=== PATIENT | female | born 1990 | race American Indian/Alaskan Native ===

== ENCOUNTER 2016-11-11 20:58 | Observation (INO) | payer SELFPAY ==
[2016-11-11 21:55] LABS: Bacteria,Urine 3+ /HPF (Negative); Bilirubin,Urine NEG (Negative); Blood,Urine LG (Negative); Ketones,Urine NEG (Negative); Leukocyte Esterase,Urine NEG (Negative); Nitrite,Urine NEG (Negative); Urobilinogen,Urine < 2.0 mg/dL (<2.0)
[2016-11-11 21:56] LABS: RBC,Urine > 182.0 /HPF (0.0-6.0)
[2016-11-11 22:09] LABS: Basophils % (Auto) 0.3 % (0.0-1.8); Eosinophils % (Auto) 0.7 % (0.0-4.3); Hematocrit 21.7 % (30.3-42.9); Hemoglobin 6.2 gm/dl (10.1-14.3); Mean Corpuscular HGB Conc 29 % (30-34); Platelet Count 328 K/mm3 (140-440); Red Blood Count 3.64 M/mm3 (3.65-5.03); Red Cell Distribution Width 19.6 % (13.2-15.2); White Blood Count 9.7 K/mm3 (4.5-11.0)
[2016-11-11 22:12] LABS: Partial Thromboplastin Time 28.1 Sec. (24.2-36.6)
[2016-11-11 22:14] LABS: Alanine Aminotransferase 14 units/L (7-56); Albumin 3.9 g/dL (3.9-5); Albumin/Globulin Ratio 1.1 %; Alkaline Phosphatase 64 units/L (35-129); Anion Gap 18 mmol/L; BUN/Creatinine Ratio 16.66; Bilirubin,Total < 0.20 mg/dL (0.1-1.2); Blood Urea Nitrogen 15 mg/dL (7-17); Calcium 8.5 mg/dL (8.4-10.2); Carbon Dioxide 22 mmol/L (22-30); Chloride 101.7 mmol/L (98-107); Glucose 128 mg/dL (65-100); Lipase 24 units/L (13-60); Potassium 4.1 mmol/L (3.6-5.0); Sodium 138 mmol/L (137-145); Total Protein 7.3 g/dL (6.3-8.2)
[2016-11-11 22:17] LABS: Mean Corpuscular Hemoglobin 17 pg (28-32); Mean Corpuscular Volume 60 fl (79-97)
[2016-11-11] MEDS ORDERED: PROVERA PO SCH (23:45)
[2016-11-11] MEDS ORDERED: NACL 0.9% 500 ML 500 ML IV ONE (23:49)
--- NOTE | 2016-11-12 00:01 | Emergency Department Report ---
ED Female HPI - General Chief complaint: Vaginal Bleeding Stated complaint: MENSTRUAL ON GOING Time Seen by Provider: 11/11/16 23:44 Source: patient Mode of arrival: Ambulatory Limitations: No Limitations - History of Present Illness Initial comments: 26-year-old female here with heavy menstrual cycle since September 13. Patient states that she has had irregular menses for several years however this is the heaviest she's been bleeding. 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 She's been feeling lightheaded and dizzy. Denies fevers chills nausea vomiting. She has no abdominal pain. She does not have a disease management nurse currently. MD Complaint: vaginal bleeding -: Gradual Radiation: non-radiating Severity: moderate Improves with: none Worsens with: none Are you Now?: No Associated Symptoms: vaginal bleeding, headaches. denies: vaginal discharge, abdominal pain, nausea/vomiting, fever/chills - Related Data Sexually active: Yes Home Medications Medication Instructions Recorded Confirmed Last Taken No Known Home Medications [No 11/11/16 11/11/16 Unknown Reported Home Medications] Allergies Allergy/AdvReac Type Severity Reaction Status Date / Time No Known Allergies Allergy Verified 09/14/14 23:11 ED Review of Systems ROS: Stated complaint: MENSTRUAL ON GOING Other details as noted in HPI Comment: All other systems reviewed and negative Constitutional: weakness. denies: chills, fever Cardiovascular: denies: chest pain, palpitations, syncope, paroxysmal nocturnal dyspnea ED Past Medical Hx - Past Medical History Previous Medical History?: Yes Hx Hypertension: No Hx Heart Attack/AMI: No Hx Congestive Heart Failure: No Hx Diabetes: Yes (gestational only) Hx Deep Vein Thrombosis: No Hx Liver Disease: No Hx Renal Disease: No Hx Sickle Cell Disease: No Hx Seizures: No Hx Asthma: No Hx COPD: No Hx HIV: No Additional medical history: anemia. pre-eclampsia. morbidly obese - Surgical History Past Surgical History?: Yes Hx Pacemaker: No Hx Internal Defibrillator: No Additional Surgical History: c/s x 1. tubal ligation. T&A. wisdom teeth - Family History Family history: no significant - Social History Smoking Status: Never Smoker Substance Use Type: None - Medications Home Medications: Home Medications Medication Instructions Recorded Confirmed Last Taken Type No Known Home Medications [No 11/11/16 11/11/16 Unknown History Reported Home Medications] ED Physical Exam - General Limitations: No Limitations General appearance: alert, other (morbidly obese) - Head Head exam: Present: atraumatic, normocephalic - Eye Eye exam: Present: other (pale conjunctiva) - ENT ENT exam: Present: normal orophraynx - Respiratory Respiratory exam: Present: normal lung sounds bilaterally, respiratory distress - Cardiovascular Cardiovascular Exam: Present: regular rate, normal rhythm - GI/Abdominal GI/Abdominal exam: Present: soft. Absent: distended, tenderness - Speculum exam: Present: other (deferred) - Extremities Exam Extremities exam: Present: full ROM, tenderness - Neurological Exam Neurological exam: Present: alert, oriented X3 - Psychiatric Psychiatric exam: Present: normal affect, normal mood ED Course Vital Signs 11/11/16 21:10 Temperature 98.0 F Pulse Rate 101 H Respiratory 16 Rate Blood Pressure 149/92 [Right] O2 Sat by Pulse 99 Oximetry ED Medical Decision Making - Lab Data Result diagrams: 11/11/16 21:40 11/11/16 21:40 - Medical Decision Making Patient is a 26-year-old female here with a irregular heavy vaginal bleeding. She is feeling lightheaded and has a hemoglobin of 6.2. Denies pain in the abdomen or pelvis. She will need transfusion and admission. Transvaginal ultrasound ordered. 26-year-old with menometorrhagia. Patient consented for blood discussed case with on-call disease management nurse and will admit to their service. Portions of this chart were dictated with dictation software. There may be dictation errors contained within this note. Critical Care Time: Yes (30) Critical care attestation.: If time is entered above; I have spent that time in minutes in the direct care of this critically ill patient, excluding procedure time. Critical Care Time: 30 ED Disposition Clinical Impression: Menometrorrhagia, Iron deficiency anemia due to chronic blood loss Disposition: OP ADMIT IP TO THIS HOSP Is pt being admited?: Yes Condition: Stable Referrals: PRIMARY CARE, [Primary Care Provider] - 3-5 Days
--- NOTE | 2016-11-12 00:50 | Ultrasound Report ---
FINAL REPORT PROCEDURE: US TRANSVAGINAL TECHNIQUE: Real-time transvaginal sonography in multiple planes of the pelvis was performed with image documentation. This examination was performed without Doppler. Vascular abnormalities, including ovarian torsion, will not be detectable without Doppler evaluation. CPT 86982 HISTORY: vaginal bleeding COMPARISON: No prior studies are available for comparison. FINDINGS: UTERUS Size: 11.8 x 6.1 x 6 5 cm. Endometrial thickness: 14 mm. The endometrial pattern is complex with some mixed echogenic region is [place] within the mid endometrium. This could represent clot formation, other etiologies such is a polyp in this region is not excluded. Orientation: anteverted. Cervix: Normal. Fibroids/masses: None. RIGHT Ovary: 3.4 x 2.4 x 2 cm. Appearance: Normal. LEFT Ovary: 3 x 2.3 x 1.7 cm. Appearance: Normal. Pelvic fluid: None. Other: None. IMPRESSION: The uterus is slightly enlarged. There is complex echogenicity in the endometrium. The endometrial pattern is slightly thickened at 14 millimeters. The findings may indicate clot formation, other etiologies such as a polyp in the endometrium is not excluded. Both ovaries have a normal size and appearance..
[2016-11-12] MEDS ORDERED: TYLENOL PO PRN (01:40)
[2016-11-12] MEDS ORDERED: PERCOCET 5/325 PO PRN (01:40)
[2016-11-12] MEDS ORDERED: BENADRYL PO ONE (01:43)
[2016-11-12 11:39] LABS: Hematocrit 25.3 % (30.3-42.9); Hemoglobin 7.5 gm/dl (10.1-14.3)
[2016-11-12 11:55] VITALS: BP 135/57
--- NOTE | 2016-11-12 11:59 | Short Stay Summary ---
Short Stay Documentation Date of service: 11/12/16 Narrative H&P: 26-year-old 003 who presents to the emergency department with a complaint of dizziness and weakness. The patient reports a history of irregular heavy bleeding with the usage of a maxi pad every 1-2 hours. Upon admission she was found to have iron deficiency anemia with a hemoglobin of 6. The patient was admitted for an blood transfusion. - History Principal diagnosis: dysfunctional uterine bleeding; iron deficiency anemia Past Medical History: other (morbid obesity) Past Surgical History: , Other (tubal ligation) Social history: - Allergies and Medications Current Medications: Allergies No Known Allergies Allergy (Verified 09/14/14 23:11) Home Medications Medication Instructions Recorded Confirmed Last Taken Type Ferrous Sulfate [Feosol 325 MG tab] 325 mg PO BID #60 tablet 11/12/16 Unknown Rx Active Medications Acetaminophen (Tylenol) 650 mg PO Q6H PRN PRN Reason: Pain, Mild (1-3) Last Admin: 11/12/16 02:12 Dose: 650 mg Oxycodone/Acetaminophen (Percocet 5/325) 2 tab PO Q6H PRN PRN Reason: Pain, Moderate (4-6) - Physical exam General appearance: no acute distress Integumentary: no rash HEENT: Atraumatic Lungs: Clear to auscultation Breasts: deferred Heart: Regular rate Gastrointestinal: normal Female Genitourinary: deferred - Hospital course Hospital course: The september traction was admitted through the emergency department secondary to severe iron deficiency anemia. She was transfused 2 units of packed red blood cells. The patient received Depo-Provera during her hospitalization to improve her vaginal bleeding. The patient was instructed to follow-up as outpatient in the [facility]. - Disposition Condition at discharge: Good Disposition: [id number] TO HOME OR SELFCARE Short Stay Discharge Plan Activity: no restrictions Diet: regular Additional Instructions: Follow-up with Dr. Joyner [facility] in 2-[address] weeks [address] [place] [id number] Prescriptions: Ferrous Sulfate [Feosol 325 MG tab] 325 mg PO BID #60 tablet
[2016-11-12] MEDS ORDERED: DEPO-PROVERA (CONTRACEPTION) IM ONE (13:00)
== END 2016-11-12 13:30 | disposition home or self-care (01) ==
LOC: ED 20:58 → OB 11-12 00:27
PROVIDERS: ADMIT Obstetrics & Gynecology; ATTEND Obstetrics & Gynecology
DX: N92.1 Excessive and frequent menstruation with irregular cycle (principal); D50.9 Iron deficiency anemia, unspecified; E66.01 Morbid (severe) obesity due to excess calories; Z98.51 Tubal ligation status
CPT/HCPCS: 36415; 36430; 76830; 80053; 81001; 83690; 84703; 85014; 85018; 85025; 85610; 85730; 86850; 86900; 86901; 86920; 96360; 96361; 96372; 99291; G0378; J1050; J7040; P9016

== ENCOUNTER 2017-06-29 18:38 | Emergency (ER) | payer SELFPAY ==
[2017-06-29] MEDS ORDERED: TYLENOL ONE (18:42)
[2017-06-29] MEDS ORDERED: TYLENOL PO ONE (18:45)
[2017-06-29] MEDS ORDERED: TORADOL IV ONE (19:50)
[2017-06-29] MEDS ORDERED: ZOFRAN IV ONE (19:50)
[2017-06-29] MEDS ORDERED: NACL 0.9% 1000 ML 1,000 ML IV ONE (19:50)
--- NOTE | 2017-06-29 19:50 | Emergency Department Report ---
Blank Doc - Documentation Documentation: Patient is a 26-year-old female who is presenting with flulike symptoms for 24 hours. Patient states she has a sore throat she hasn't eaten or drank anything in 24 hours she also is complaining of mild cough bodyaches dizziness and nausea. Patient on brief physical exam was tachycardic moved to a treatment area to receive IV fluids Toradol and be reassessed.
--- NOTE | 2017-06-29 20:17 | Emergency Department Report ---
ED General Adult HPI - General Chief complaint: Fever Stated complaint: FLU LIKE SX Time Seen by Provider: 06/29/17 19:45 Source: patient Mode of arrival: Ambulatory Limitations: No Limitations - History of Present Illness Initial comments: Patient is a 26-year-old female who is presenting with flulike symptoms for 24 hours. Patient states she has a sore throat she hasn't eaten or drank anything in 24 hours she also is complaining of mild cough bodyaches dizziness and nausea. Patient on brief physical exam was tachycardic moved to a treatment area to receive IV fluids Toradol and be reassessed. Onset/Timin -: days(s) Location: head, back Radiation: back Severity scale (0 -10): 2 Quality: aching Consistency: constant Improves with: none Worsens with: other (activity ) Associated Symptoms: cough, fever/chills, headaches, loss of appetite, malaise, nausea/vomiting. denies: confusion, chest pain, rash, seizure, shortness of breath, syncope, weakness Treatments Prior to Arrival: none - Related Data Previous Rx's Medication Instructions Recorded Last Taken Type Ferrous Sulfate [Feosol 325 MG tab] 325 mg PO BID #60 tablet 11/12/16 Unknown Rx Guaifenesin/Pseudoephedrne HCl 1 tab PO BID PRN #24 tab 06/29/17 Unknown Rx [Mucinex D ER 1,200-120 mg Tab] Ibuprofen 800 mg PO TID PRN #30 tablet 06/29/17 Unknown Rx Ondansetron [Zofran Odt] 4 mg PO TID PRN #12 tab.rapdis 06/29/17 Unknown Rx Allergies Allergy/AdvReac Type Severity Reaction Status Date / Time No Known Allergies Allergy Verified 09/14/14 23:11 ED Review of Systems ROS: Stated complaint: FLU LIKE SX Other details as noted in HPI Constitutional: denies: chills, fever Eyes: denies: eye pain, eye discharge, vision change ENT: ear pain, throat pain, congestion Respiratory: cough. denies: shortness of breath, wheezing Cardiovascular: denies: chest pain, palpitations Endocrine: no symptoms reported Gastrointestinal: abdominal pain. denies: nausea, vomiting, diarrhea, constipation, hematemesis, melena, hematochezia Genitourinary: denies: urgency, dysuria, discharge Musculoskeletal: denies: back pain, joint swelling, arthralgia Skin: denies: rash, lesions Neurological: headache. denies: weakness, numbness, paresthesias, confusion, abnormal gait, vertigo Psychiatric: denies: anxiety, depression Hematological/Lymphatic: denies: easy bleeding, easy bruising ED Past Medical Hx - Past Medical History Hx Hypertension: No Hx Heart Attack/AMI: No Hx Congestive Heart Failure: No Hx Diabetes: Yes (gestational only) Hx Deep Vein Thrombosis: No Hx Liver Disease: No Hx Renal Disease: No Hx Sickle Cell Disease: No Hx Seizures: No Hx Asthma: No Hx COPD: No Hx HIV: No Additional medical history: anemia. pre-eclampsia. morbidly obese - Surgical History Hx Pacemaker: No Hx Internal Defibrillator: No Additional Surgical History: c/s x 1. tubal ligation. T&A. wisdom teeth - Social History Smoking Status: Never Smoker Substance Use Type: None - Medications Home Medications: Home Medications Medication Instructions Recorded Confirmed Last Taken Type Ferrous Sulfate [Feosol 325 MG tab] 325 mg PO BID #60 tablet 11/12/16 Unknown Rx Guaifenesin/Pseudoephedrne HCl 1 tab PO BID PRN #24 tab 06/29/17 Unknown Rx [Mucinex D ER 1,200-120 mg Tab] Ibuprofen 800 mg PO TID PRN #30 tablet 06/29/17 Unknown Rx Ondansetron [Zofran Odt] 4 mg PO TID PRN #12 tab.rapdis 06/29/17 Unknown Rx ED Physical Exam - General Limitations: No Limitations General appearance: alert, in no apparent distress - Head Head exam: Present: atraumatic, normocephalic - Eye Eye exam: Present: normal appearance, PERRL, EOMI Pupils: Present: normal accommodation - ENT ENT exam: Present: normal exam, mucous membranes moist, TM's normal bilaterally (mild canal erythema ) - Expanded ENT Exam Expanded TM/Canal exam: Canal Tenderness: Right TM, Left TM Mouth exam: Present: normal external inspection Throat exam: Positive: tonsillar erythema, tonsillomegaly. Negative: tonsillar exudate, R peritonsillar mass, L peritonsillar mass - Neck Neck exam: Present: normal inspection, full ROM. Absent: tenderness, meningismus, lymphadenopathy, thyromegaly - Respiratory Respiratory exam: Present: normal lung sounds bilaterally. Absent: respiratory distress, wheezes, rhonchi, chest wall tenderness - Cardiovascular Cardiovascular Exam: Present: normal rhythm, tachycardia, normal heart sounds. Absent: systolic murmur, diastolic murmur, rubs, gallop - GI/Abdominal GI/Abdominal exam: Present: soft, normal bowel sounds. Absent: distended, tenderness, guarding, rebound, rigid, organomegaly, mass, bruit, pulsatile mass , hernia - Rectal Rectal exam: Present: deferred - Extremities Exam Extremities exam: Present: normal inspection, full ROM, normal capillary refill. Absent: tenderness, pedal edema, joint swelling, calf tenderness - Back Exam Back exam: Present: normal inspection, full ROM. Absent: tenderness, CVA tenderness (R), CVA tenderness (L), muscle spasm, paraspinal tenderness, vertebral tenderness, rash noted - Neurological Exam Neurological exam: Present: alert, oriented X3, CN II-XII intact, normal gait, reflexes normal - Psychiatric Psychiatric exam: Present: normal affect, normal mood - Skin Skin exam: Present: warm, dry, intact, normal color. Absent: rash ED Course Vital Signs 06/29/17 06/29/17 06/29/17 18:43 18:48 19:48 Temperature 102.4 F H Pulse Rate 124 H Respiratory 24 24 18 Rate Blood Pressure 153/68 Blood Pressure [Left] O2 Sat by Pulse 96 Oximetry 06/29/17 06/29/17 06/29/17 20:56 21:00 21:17 Temperature 101.2 F H Pulse Rate 96 H 101 H Respiratory 18 20 18 Rate Blood Pressure 125/55 Blood Pressure 111/62 [Left] O2 Sat by Pulse 97 98 Oximetry 06/29/17 21:22 Temperature 100.9 F H Pulse Rate Respiratory Rate Blood Pressure Blood Pressure [Left] O2 Sat by Pulse Oximetry ED Medical Decision Making - Medical Decision Making Patient is a 26-year-old female who is presenting with flulike symptoms for 24 hours. Patient states she has a sore throat she hasn't eaten or drank anything in 24 hours she also is complaining of mild cough bodyaches dizziness and nausea. Patient on brief physical exam was tachycardic moved to a treatment area to receive IV fluids Toradol and be reassessed. pt appears improve nontoxic is tolerating po challenge with out n/v ent exam: tms: normal mild canal erythema, nose: boggy bilat turbinate erythema no polyps no obstruction pharynx: moderate erythema no exudate no lestion lungs are clear bilat no wheezing heart rate and fever are improve, plan: tx for flu like symptoms uri, mucinex D, ibuprofen, zofran, hydrate as directed follow up with pcp in 2-3 days, pt verbalized agreement and understanding of same. Critical care attestation.: If time is entered above; I have spent that time in minutes in the direct care of this critically ill patient, excluding procedure time. ED Disposition Clinical Impression: Flu-like symptoms, Upper respiratory infection Disposition: TO HOME OR SELFCARE Is pt being admited?: No Does the pt Need Aspirin: No Condition: Good Instructions: Influenza (ED), Upper Respiratory Infection (ED) Prescriptions: Guaifenesin/Pseudoephedrne HCl [Mucinex D ER 1,200-120 mg Tab] 1 tab PO BID PRN #24 tab PRN Reason: cough congestion Ibuprofen 800 mg PO TID PRN #30 tablet PRN Reason: pain fever Ondansetron [Zofran Odt] 4 mg PO TID PRN #12 tab.rapdis PRN Reason: Nausea And Vomiting Referrals: PRIMARY CARE,MD [Primary Care Provider] - 3-5 Days Forms: Work/School Release Form(ED) Time of Disposition: 22:32
[2017-06-29 22:33] VITALS: BP 128/64
== END 2017-06-29 22:45 | disposition home or self-care (01) ==
LOC: ED 18:38
DX: J06.9 Acute upper respiratory infection, unspecified (principal); Z98.51 Tubal ligation status
CPT/HCPCS: 96361; 96374; 96375; 99283; J1885; J2405; J7030

== ENCOUNTER 2018-01-31 19:23 | Emergency (ER) | payer SELFPAY ==
--- NOTE | 2018-01-31 19:55 | Emergency Department Report ---
ED Lower Extremity HPI - General Chief Complaint: Extremity Injury, Lower Stated Complaint: LEFT LEG PAIN Time Seen by Provider: 01/31/18 19:55 Source: patient Mode of arrival: Ambulatory Limitations: No Limitations - History of Present Illness Initial Comments: This is a 27-year-old female nontoxic, well nourished in appearance, no acute signs of distress presents to the ED with c/o of left knee pain 1 week. Patient stated that when she was walking she felt a pop. Patient denies any trauma. Patient denies any numbness, tingling, fever, chills, nausea, vomiting , chest pain, shortness of breath, headache, stiff neck. Patient denies any joint swelling or joint redness. Patient denies decreased range of motion. Patient stated has decreased gait due to pain. Patient denies any allergies. Past medical history includes diabetes, gestational and anemia. MD Complaint: knee injury -: week(s) (1) Injury: Knee: Left Severity: mild Severity scale (0 -10): 8 Improves With: immobilization Worsens With: weight bearing, movement, palpation Associated Symptoms: snap/pop sensation, able to partially bear weight, ambulatory. denies: swelling, numbness, tingling, unable to bear weight - Related Data Previous Rx's Medication Instructions Recorded Last Taken Type Ferrous Sulfate [Feosol 325 MG tab] 325 mg PO BID #60 tablet 11/12/16 Unknown Rx Guaifenesin/Pseudoephedrne HCl 1 tab PO BID PRN #24 tab 06/29/17 Unknown Rx [Mucinex D ER 1,200-120 mg Tab] Ibuprofen 800 mg PO TID PRN #30 tablet 06/29/17 Unknown Rx Ondansetron [Zofran Odt] 4 mg PO TID PRN #12 tab.rapdis 06/29/17 Unknown Rx Acetaminophen/Codeine [Tylenol 1 tab PO Q6H PRN #12 tab 01/31/18 Unknown Rx /Codeine # 3 tab] Ibuprofen [Motrin] 600 mg PO Q8H PRN #30 tab 01/31/18 Unknown Rx Allergies Allergy/AdvReac Type Severity Reaction Status Date / Time No Known Allergies Allergy Verified 09/14/14 23:11 ED Review of Systems ROS: Stated complaint: LEFT LEG PAIN Other details as noted in HPI Constitutional: denies: chills, fever Eyes: denies: eye pain, eye discharge, vision change ENT: denies: ear pain, throat pain Respiratory: denies: cough, shortness of breath, wheezing Cardiovascular: denies: chest pain, palpitations Endocrine: no symptoms reported Gastrointestinal: denies: abdominal pain, nausea, diarrhea Genitourinary: denies: urgency, dysuria, discharge Musculoskeletal: denies: back pain, joint swelling, arthralgia Skin: denies: rash, lesions Neurological: denies: headache, weakness, paresthesias Psychiatric: denies: anxiety, depression Hematological/Lymphatic: denies: easy bleeding, easy bruising ED Past Medical Hx - Past Medical History Previous Medical History?: Yes Hx Hypertension: No Hx Heart Attack/AMI: No Hx Congestive Heart Failure: No Hx Diabetes: Yes (gestational only) Hx Deep Vein Thrombosis: No Hx Liver Disease: No Hx Renal Disease: No Hx Sickle Cell Disease: No Hx Seizures: No Hx Asthma: No Hx COPD: No Hx HIV: No Additional medical history: anemia. pre-eclampsia. morbidly obese - Surgical History Past Surgical History?: Yes Hx Pacemaker: No Hx Internal Defibrillator: No Additional Surgical History: c/s x 1. tubal ligation. T&A. wisdom teeth - Social History Smoking Status: Never Smoker Substance Use Type: None - Medications Home Medications: Home Medications Medication Instructions Recorded Confirmed Last Taken Type Ferrous Sulfate [Feosol 325 MG tab] 325 mg PO BID #60 tablet 11/12/16 Unknown Rx Guaifenesin/Pseudoephedrne HCl 1 tab PO BID PRN #24 tab 06/29/17 Unknown Rx [Mucinex D ER 1,200-120 mg Tab] Ibuprofen 800 mg PO TID PRN #30 tablet 06/29/17 Unknown Rx Ondansetron [Zofran Odt] 4 mg PO TID PRN #12 tab.rapdis 06/29/17 Unknown Rx Acetaminophen/Codeine [Tylenol 1 tab PO Q6H PRN #12 tab 01/31/18 Unknown Rx /Codeine # 3 tab] Ibuprofen [Motrin] 600 mg PO Q8H PRN #30 tab 01/31/18 Unknown Rx ED Physical Exam - General Limitations: No Limitations General appearance: alert, in no apparent distress - Head Head exam: Present: atraumatic, normocephalic - Eye Eye exam: Present: normal appearance - ENT ENT exam: Present: mucous membranes moist - Neck Neck exam: Present: normal inspection - Respiratory Respiratory exam: Present: normal lung sounds bilaterally. Absent: respiratory distress - Cardiovascular Cardiovascular Exam: Present: regular rate, normal rhythm. Absent: systolic murmur, diastolic murmur, rubs, gallop - GI/Abdominal GI/Abdominal exam: Present: soft, normal bowel sounds - Extremities Exam Extremities exam: Present: normal inspection, full ROM, tenderness, normal capillary refill. Absent: joint swelling - Expanded Lower Extremity Exam Left Hip exam: Present: normal inspection, full ROM. Absent: tenderness, swelling Upper Leg exam: Present: normal inspection, full ROM. Absent: tenderness, swelling Knee exam: Present: normal inspection, full ROM, tenderness, full knee extension. Absent: swelling, abrasion, laceration, ecchymosis, deformity, crepidus, dislocation, erythema, effusion, pain w/ pronation/supination, posterior draw sign, pain/laxity with valgus, pain/laxity with varus Lower Leg exam: Present: normal inspection, full ROM. Absent: tenderness, swelling Ankle exam: Present: normal inspection, full ROM. Absent: tenderness, swelling Foot/Toe exam: Present: normal inspection, full ROM. Absent: tenderness, swelling Neuro vascular tendon exam: Present: no vascular compromise. Absent: pulse deficit, abnormal cap refill, motor deficit, sensory deficit, tendon deficit, extremity cold to touch, pallor, abnormal 2-point discrimination, decreased fine /light touch, foot drop, peroneal nerve deficit, significant pain with passive ROM of distal joint Gait: Positive: observed and limited by pain - Back Exam Back exam: Present: normal inspection - Neurological Exam Neurological exam: Present: alert, oriented X3 - Psychiatric Psychiatric exam: Present: normal affect, normal mood - Skin Skin exam: Present: warm, dry, intact, normal color. Absent: rash ED Course Vital Signs 01/31/18 19:44 Temperature 98.5 F Pulse Rate 68 Respiratory 17 Rate Blood Pressure 164/92 O2 Sat by Pulse 99 Oximetry - Reevaluation(s) Reevaluation #1: 01/31/18 20:51 Patient is speaking in full sentences with no signs of distress noted. ED Lower Extremity MDM - Medical Decision Making This is a 27-year-old female that presents with left knee strain. Patient is stable and was examined by me. I referred patient to an orthopedic doctor for further evaluation for possible MRI. X-ray has been obtained and dictated by the radiologist. Patient is notified of the x-ray report with noted by the patient. Patient does have normal gait with no tenderness and no joint swelling. No ecchymosis. no joint redness or swelling. Not warm to touch. No signs of cellulites present. Patient received a knee immobilizer but was too small so patient received an frances wrap. Patient was instructed to RICE therapy. Patient received Motrin for pain. Patient is discharged with Motrin. At time of discharge, the patient does not seem toxic or ill in appearance. No acute signs of distress noted. Patient agrees to discharge treatment plan of care. No further questions noted by the patient. Critical care attestation.: If time is entered above; I have spent that time in minutes in the direct care of this critically ill patient, excluding procedure time. ED Disposition Clinical Impression: Strain of left knee Qualifiers: Encounter type: initial encounter Qualified Code(s): S86.912A - Strain of unspecified muscle(s) and tendon(s) at lower leg level, left leg, initial encounter Disposition: - TO HOME OR SELFCARE Is pt being admited?: No Does the pt Need Aspirin: No Condition: Stable Instructions: Acetaminophen/Codeine (By mouth), Knee Pain (ED), RICE Therapy ( ED), Knee Immobilizer (ED) Additional Instructions: Follow-up with a orthopedic doctor in 3-5 days or if symptoms worsen and continue return to emergency room as soon as possible. Do not operate any machinery while taking Tylenol with codeine as this may cause drowsiness. Prescriptions: Acetaminophen/Codeine [Tylenol /Codeine # 3 tab] 1 tab PO Q6H PRN #12 tab PRN Reason: Pain , Severe (7-10) Ibuprofen [Motrin] 600 mg PO Q8H PRN #30 tab PRN Reason: Pain Referrals: PRIMARY CAREMD [Primary Care Provider] - 3-5 Days RAFIQ PRICE MD [Staff Physician] - 3-5 Days [facility] [Outside] - 3-5 Days [facility] [Outside] - 3-5 Days Forms: Work/School Release Form(ED)
--- NOTE | 2018-01-31 20:35 | XRay Report ---
FINAL REPORT PROCEDURE: XR KNEE 1-2V LT TECHNIQUE: Left knee radiographs, AP and lateral views. HISTORY: left knee pain COMPARISON: No prior studies are available for comparison. FINDINGS: Fracture (s) and/or Dislocation(s): None . Joint space(s): Moderate joint space narrowing of the medial compartment. There is tricompartmental spurring. Soft tissues: Normal. Bone mineralization: Normal. Foreign bodies: None. IMPRESSION: Degenerative change. No fracture seen.
[2018-01-31 21:14] VITALS: BP 142/75
== END 2018-01-31 21:12 | disposition home or self-care (01) ==
LOC: ED 19:23
DX: S86.912A Strain of unspecified muscle(s) and tendon(s) at lower leg level, left leg, initial encounter (principal); E11.9 Type 2 diabetes mellitus without complications; Z98.51 Tubal ligation status; X58.XXXA Exposure to other specified factors, initial encounter; Y93.01 Activity, walking, marching and hiking; Y92.89 Other specified places as the place of occurrence of the external cause; Y99.8 Other external cause status
CPT/HCPCS: 99283

== ENCOUNTER 2018-02-20 12:01 | Emergency (ER) | payer OTHER ==
[2018-02-20 12:18] VITALS: BP 158/68
[2018-02-20 12:44] LABS: HCG Qualitative,Urine Negative (Negative)
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
--- NOTE | 2018-02-20 14:35 | XRay Report ---
LEFT KNEE, 3 views: History: Right knee. Moderate osteoarthritic changes are identified in the medial compartment and patellofemoral space. No evidence for fracture or or bone lesion. Small joint effusion. IMPRESSION: Osteoarthritis. Small joint effusion.
--- NOTE | 2018-02-20 14:35 | XRay Report ---
LUMBOSACRAL SPINE, 3 VIEWS: History: Back pain Findings: The vertebral bodies, disk spaces and posterior elements are intact. No compression deformity or malalignment. There is moderate diffuse facet arthropathy throughout the lumbar region. The disc spaces are unremarkable. The SI joints are symmetric and unremarkable. Impression: Diffuse facet arthropathy. No acute injury.
== END 2018-02-20 15:01 | disposition home or self-care (01) ==
LOC: ED 12:01
DX: S39.012A Strain of muscle, fascia and tendon of lower back, initial encounter (principal); M17.12 Unilateral primary osteoarthritis, left knee; M25.462 Effusion, left knee; E66.01 Morbid (severe) obesity due to excess calories; Z68.43 Body mass index [BMI] 50.0-59.9, adult; Z86.2 Personal history of diseases of the blood and blood-forming organs and certain disorders involving the immune mechanism; Z98.51 Tubal ligation status; Z79.899 Other long term (current) drug therapy; V89.2XXA Person injured in unspecified motor-vehicle accident, traffic, initial encounter; Y93.89 Activity, other specified; Y99.8 Other external cause status; Y92.410 Unspecified street and highway as the place of occurrence of the external cause
CPT/HCPCS: 72100; 81025; 99283

== ENCOUNTER 2019-04-10 09:30 | Emergency (ER) | payer SELFPAY ==
[2019-04-10 09:41] VITALS: BP 183/55
[2019-04-10 10:23] LABS: Bilirubin,Urine NEG (Negative); Blood,Urine NEG (Negative); Color,Urine Straw (Yellow); Mucus,Urine FEW /HPF; Protein,Urine <15 mg/dL mg/dL (Negative); RBC,Urine < 1.0 /HPF (0.0-6.0); Urobilinogen,Urine < 2.0 mg/dL (<2.0); WBC,Urine < 1.0 /HPF (0.0-6.0)
[2019-04-10 10:28] LABS: HCG Qualitative,Urine Negative (Negative)
--- NOTE | 2019-04-10 11:41 | Emergency Department Report ---
ED Female HPI - General Chief complaint: Abdominal Pain Stated complaint: RT ARM TINGLE/FEVER/LOWER ABD Time Seen by Provider: 04/10/19 10:24 Source: patient Mode of arrival: Ambulatory Limitations: No Limitations - History of Present Illness Initial comments: Patient is a 28-year-old female presents emergency room with complaints of chronic left-sided pelvic discomfort that began 3 days ago. She has associated dysuria, less frequent urination, clear vaginal discharge. she denies any vaginal itching, vaginal burning, lesions or blisters. She denies any nausea, vomiting, diarrhea, fever. She had a normal bowel movement yesterday. Patient states that she had a pelvic ultrasound performed in May 2018 by her ENGINEERING PRODUCTION WORKER which she states was normal. States that she is was to have a workup for endometriosis by her ENGINEERING PRODUCTION WORKER. denies any past medical history or allergies medications. She states her last mental cycle was January and states she has irregular cycles. - Related Data Previous Rx's Medication Instructions Recorded Last Taken Type Ferrous Sulfate [Feosol 325 MG tab] 325 mg PO BID #60 tablet 11/12/16 Unknown Rx Guaifenesin/Pseudoephedrne HCl 1 tab PO BID PRN #24 tab 06/29/17 Unknown Rx [Mucinex D ER 1,200-120 mg Tab] Ibuprofen 800 mg PO TID PRN #30 tablet 06/29/17 Unknown Rx Ondansetron [Zofran Odt] 4 mg PO TID PRN #12 tab.rapdis 06/29/17 Unknown Rx Acetaminophen/Codeine [Tylenol 1 tab PO Q6H PRN #12 tab 01/31/18 Unknown Rx /Codeine # 3 tab] Ibuprofen [Motrin] 600 mg PO Q8H PRN #30 tab 01/31/18 Unknown Rx Ibuprofen [Motrin 800 MG tab] 800 mg PO Q8HR PRN #12 tablet 02/20/18 Unknown Rx methOCARBAMOL [Robaxin TAB] 500 mg PO BID #10 tab 02/20/18 Unknown Rx metroNIDAZOLE [Flagyl] 500 mg PO BID 7 Days #14 tab 04/10/19 Unknown Rx Allergies Allergy/AdvReac Type Severity Reaction Status Date / Time No Known Allergies Allergy Verified 09/14/14 23:11 ED Review of Systems ROS: Stated complaint: RT ARM TINGLE/FEVER/LOWER ABD Other details as noted in HPI Comment: All other systems reviewed and negative ED Past Medical Hx - Past Medical History Previous Medical History?: Yes Hx Hypertension: No Hx Heart Attack/AMI: No Hx Congestive Heart Failure: No Hx Diabetes: Yes (gestational only) Hx Deep Vein Thrombosis: No Hx Liver Disease: No Hx Renal Disease: No Hx Sickle Cell Disease: No Hx Seizures: No Hx Asthma: No Hx COPD: No Hx HIV: No Additional medical history: Anemia - Surgical History Past Surgical History?: Yes Hx Pacemaker: No Hx Internal Defibrillator: No Additional Surgical History: c/s x 1. tubal ligation. T&A. wisdom teeth - Social History Smoking Status: Never Smoker Substance Use Type: Alcohol - Medications Home Medications: Home Medications Medication Instructions Recorded Confirmed Last Taken Type Ferrous Sulfate [Feosol 325 MG tab] 325 mg PO BID #60 tablet 11/12/16 Unknown Rx Guaifenesin/Pseudoephedrne HCl 1 tab PO BID PRN #24 tab 06/29/17 Unknown Rx [Mucinex D ER 1,200-120 mg Tab] Ibuprofen 800 mg PO TID PRN #30 tablet 06/29/17 Unknown Rx Ondansetron [Zofran Odt] 4 mg PO TID PRN #12 tab.rapdis 06/29/17 Unknown Rx Acetaminophen/Codeine [Tylenol 1 tab PO Q6H PRN #12 tab 01/31/18 Unknown Rx /Codeine # 3 tab] Ibuprofen [Motrin] 600 mg PO Q8H PRN #30 tab 01/31/18 Unknown Rx Ibuprofen [Motrin 800 MG tab] 800 mg PO Q8HR PRN #12 tablet 02/20/18 Unknown Rx methOCARBAMOL [Robaxin TAB] 500 mg PO BID #10 tab 02/20/18 Unknown Rx metroNIDAZOLE [Flagyl] 500 mg PO BID 7 Days #14 tab 04/10/19 Unknown Rx ED Physical Exam - General Limitations: No Limitations General appearance: alert, in no apparent distress - Head Head exam: Present: atraumatic, normocephalic - Eye Eye exam: Present: normal appearance - ENT ENT exam: Present: mucous membranes moist - Respiratory Respiratory exam: Present: normal lung sounds bilaterally. Absent: respiratory distress, wheezes, rales, rhonchi, stridor, chest wall tenderness, accessory muscle use, decreased breath sounds, prolonged expiratory - Cardiovascular Cardiovascular Exam: Present: regular rate, normal rhythm, normal heart sounds. Absent: systolic murmur, diastolic murmur, rubs, gallop - GI/Abdominal GI/Abdominal exam: Present: soft, normal bowel sounds. Absent: distended, tende rness, guarding, rebound, rigid - External exam: Present: normal external exam. Absent: erythema, swelling, lesions, lacerations, ecchymosis, bleeding Speculum exam: Present: vaginal discharge (clear, fishy odor), other (coal trammer: HEMANT pastrana). Absent: erythema, vaginal bleeding, foreign body Bi-manual exam: Present: normal bi-manual exam. Absent: cervical motion tendernes, adnexal tenderness, adnexal mass - Back Exam Back exam: Absent: CVA tenderness (R), CVA tenderness (L) - Neurological Exam Neurological exam: Present: alert, oriented X3 - Psychiatric Psychiatric exam: Present: normal affect, normal mood - Skin Skin exam: Present: warm, dry, intact ED Course Vital Signs 04/10/19 09:39 Temperature 98.3 F Pulse Rate 71 Respiratory 18 Rate Blood Pressure 183/55 O2 Sat by Pulse 96 Oximetry ED Medical Decision Making - Lab Data Lab Results 04/10/19 Range/Units 10:11 Urine Color Straw (Yellow) Urine Turbidity Clear (Clear) Urine pH 7.0 (5.0-7.0) Ur Specific Baxter 1.013 (1.003-1.030) Urine Protein <15 mg/dl (Negative) mg/dL Urine Glucose (UA) Neg (Negative) mg/dL Urine Ketones Neg (Negative) mg/dL Urine Blood Neg (Negative) Urine Nitrite Neg (Negative) Urine Bilirubin Neg (Negative) Urine Urobilinogen < 2.0 (<2.0) mg/dL Ur Leukocyte Esterase Neg (Negative) Urine WBC (Auto) < 1.0 (0.0-6.0) /HPF Urine RBC (Auto) < 1.0 (0.0-6.0) /HPF U Epithel Cells (Auto) 1.0 (0-13.0) /HPF Urine Mucus Few /HPF Urine HCG, Qual Negative (Negative) - Medical Decision Making Patient is a 28-year-old female presents emergency room with complaints of chronic left-sided pelvic discomfort that began 3 days ago. She has associated dysuria, less frequent urination, clear vaginal discharge. she denies any vaginal itching, vaginal burning, lesions or blisters. She denies any nausea, vomiting, diarrhea, fever. She had a normal bowel movement yesterday. Patient states that she had a pelvic ultrasound performed in May 2018 by her ENGINEERING PRODUCTION WORKER which she states was normal. States that she is was to have a workup for endometriosis by her ENGINEERING PRODUCTION WORKER. denies any past medical history or allergies medications. She states her last mental cycle was January and states she has irregular cycles. vitals with elevated BP, otherwise stable. UA is normal. urine preg is negative. wet prep is negative. G/C swab sent. no abd tenderness on exam. on pelvic exam: clear, fishy odor vaginal discharge, no CMT, no adnexal masses or tenderness, coal trammer: HEMANT pastrana. no clinical signs or symptoms of TOA or PID. pt given flagyl for vaginitis. advised pt to Please take medication as prescribed. do not drink alcohol while taking medication. Please go to medical records in one week with your drivers license for results of your tests to see if you need further treatment. Please follow-up with a primary care doctor and an ENGINEERING PRODUCTION WORKER. Please see the ENGINEERING PRODUCTION WORKER for further evaluation and ma nagement. Return to the emergency room for any new or worsening symptoms. - Differential Diagnosis vaginitis, UTI, BV, STD, yeast, ovarian cyst, fibroids, endometriosis Critical care attestation.: If time is entered above; I have spent that time in minutes in the direct care of this critically ill patient, excluding procedure time. ED Disposition Clinical Impression: Chronic pelvic pain in female, Dysuria Vaginitis Qualifiers: Chronicity: acute Qualified Code(s): N76.0 - Acute vaginitis Disposition: TO HOME OR SELFCARE Is pt being admited?: No Does the pt Need Aspirin: No Condition: Stable Instructions: Vaginitis (ED), Chronic Pelvic Pain in Women (ED) Additional Instructions: Please take medication as prescribed. do not drink alcohol while taking medication. Please go to medical records in one week with your drivers license for results of your tests to see if you need further treatment. Please follow- up with a primary care doctor and an ENGINEERING PRODUCTION WORKER. Please see the ENGINEERING PRODUCTION WORKER for further evaluation and management. Return to the emergency room for any new or worsening symptoms. Prescriptions: metroNIDAZOLE [Flagyl] 500 mg PO BID 7 Days #14 tab Referrals: your, ENGINEERING PRODUCTION WORKER [Other] - 2-[address] MD [Staff Physician] - 2-3 Days Forms: Work/School Release Form(ED) Time of Disposition: 12:07 Print Language: SCOTTISH
== END 2019-04-10 12:24 | disposition home or self-care (01) ==
LOC: ED 09:30
DX: N76.0 Acute vaginitis (principal); R30.0 Dysuria
CPT/HCPCS: 81001; 81025; 87210; 87591

== ENCOUNTER 2019-11-13 23:12 | Emergency (ER) | payer SELFPAY ==
--- NOTE | 2019-11-14 00:10 | XRay Report ---
CHEST 1 VIEW 12:00 AM INDICATION / CLINICAL INFORMATION: Chest Pain. COMPARISON: 05/04/16. FINDINGS: SUPPORT DEVICES: None. HEART / MEDIASTINUM: The heart size is borderline. Pulmonary vasculature is normal. The aorta is norm al in caliber. LUNGS / PLEURA: No significant pulmonary or pleural abnormality. No pneumothorax. ADDITIONAL FINDINGS: No significant additional findings. IMPRESSION: Borderline heart size without acute pulmonary disease. Signer Name: Geovanny Swanson MD Signed: 11/14/2019 12:05 AM Workstation Name: [id number]
[2019-11-14] MEDS ORDERED: ACETAMINOPHEN 500 MG TAB PO ONE (02:38)
[2019-11-14] MEDS ORDERED: ACETAMINOPHEN 325 MG/10.15 ML ORAL LIQD UNIT DOSE PO ONE (02:38)
[2019-11-14] MEDS ORDERED: predniSONE 20 MG TAB PO ONE (02:38)
--- NOTE | 2019-11-14 02:39 | Emergency Department Report ---
ED General Adult HPI - General Chief complaint: Chest Pain Stated complaint: CHESTPAIN/HEADACHE/EARACHE Source: patient Mode of arrival: Ambulatory Limitations: No Limitations - History of Present Illness Initial comments: Patient is a 29-year-old -[place] female with a history of chronic morbid obesity and gestational diabetes who presents to the ED with complaint of acute onset persistent nasal and sinus congestion, frontal sinus pressure and headache, severe bilateral ear pain, persistent dry cough with pleuritic chest pain, sore throat, diffuse body aches and pains for the last 1 week. Patient states that the symptoms have worsened in the last 2 days at that she has not been able to sleep because of severe bilateral ear pain and frontal sinus pressure and headache. Patient also states that her cough is worse at night when she lays down to sleep. Patient also states that she has been taking [id number] medications especially decongestants with no relief. Patient denies dizziness, chest pain, shortness of breath, abdominal pain, nausea, vomiting, diarrhea, fever, chills, dysuria, urinary frequency and urgency, syncope or palpitations. MD Complaint: frontal headache, bilateral ear pain; chest pain -: Sudden, week(s) (1) Location: head, face, chest Radiation: non-radiation Severity scale (0 -10): 5 Quality: aching, sharp Consistency: constant Improves with: none Worsens with: none Associated Symptoms: denies other symptoms, chest pain, headaches, loss of appetite, malaise. denies: confusion, cough, diaphoresis, fever/chills, nausea/vomiting, rash, seizure, shortness of breath, syncope, weakness, other Treatments Prior to Arrival: none - Related Data Previous Rx's Medication Instructions Recorded Last Taken Type Ferrous Sulfate [Feosol 325 MG tab] 325 mg PO BID #60 tablet 11/12/16 Unknown Rx Guaifenesin/Pseudoephedrne HCl 1 tab PO BID PRN #24 tab 06/29/17 Unknown Rx [Mucinex D ER 1,200-120 mg Tab] Ibuprofen 800 mg PO TID PRN #30 tablet 06/29/17 Unknown Rx Ondansetron [Zofran Odt] 4 mg PO TID PRN #12 tab.rapdis 06/29/17 Unknown Rx Acetaminophen/Codeine [Tylenol 1 tab PO Q6H PRN #12 tab 01/31/18 Unknown Rx /Codeine # 3 tab] Ibuprofen [Motrin] 600 mg PO Q8H PRN #30 tab 01/31/18 Unknown Rx Ibuprofen [Motrin 800 MG tab] 800 mg PO Q8HR PRN #12 tablet 02/20/18 Unknown Rx methOCARBAMOL [Robaxin TAB] 500 mg PO BID #10 tab 02/20/18 Unknown Rx metroNIDAZOLE [Flagyl] 500 mg PO BID 7 Days #14 tab 04/10/19 Unknown Rx Amoxicillin/Potassium Clav 1 each PO Q12H #20 tablet 11/14/19 Unknown Rx [Augmentin 875-125 Tablet] Benzonatate [Tessalon Perles] 100 mg PO Q8HR #30 capsule 11/14/19 Unknown Rx Butalb/Acetamin/Caff 50-325-40 1 - 2 tab PO Q6HR PRN #15 tab 11/14/19 Unknown Rx [Fioricet 50-325-40] Ibuprofen [Motrin] 800 mg PO Q8HR PRN #30 tablet 11/14/19 Unknown Rx methylPREDNISolone [Medrol 4MG 4 mg PO DAILY #21 tab.ds.pk 11/14/19 Unknown Rx DOSEPAK (21 tabs)] Allergies Allergy/AdvReac Type Severity Reaction Status Date / Time No Known Allergies Allergy Verified 09/14/14 23:11 ED Review of Systems ROS: Stated complaint: CHESTPAIN/HEADACHE/EARACHE Other details as noted in HPI Constitutional: denies: chills, fever Eyes: denies: eye pain, eye discharge, vision change ENT: congestion, other (Frontal sinus pressure and headache). denies: ear pain, throat pain Respiratory: cough. denies: shortness of breath, wheezing Cardiovascular: chest pain (Pleuritic chest wall pain with cough). denies: palpitations Endocrine: no symptoms reported Gastrointestinal: denies: abdominal pain, nausea, diarrhea Genitourinary: denies: urgency, dysuria, discharge Musculoskeletal: denies: back pain, joint swelling, arthralgia Skin: denies: rash, lesions Neurological: headache (Frontal sinus pressure and headache). denies: weakness, paresthesias Psychiatric: denies: anxiety, depression Hematological/Lymphatic: denies: easy bleeding, easy bruising ED Past Medical Hx - Past Medical History Previous Medical History?: Yes Hx Hypertension: No Hx Heart Attack/AMI: No Hx Congestive Heart Failure: No Hx Diabetes: Yes (gestational only) Hx Deep Vein Thrombosis: No Hx Liver Disease: No Hx Renal Disease: No Hx Sickle Cell Disease: No Hx Seizures: No Hx Asthma: No Hx COPD: No Hx HIV: No Additional medical history: Anemia - Surgical History Past Surgical History?: Yes Hx Pacemaker: No Hx Internal Defibrillator: No Additional Surgical History: c/s x 1. tubal ligation. T&A. wisdom teeth - Social History Smoking Status: Never Smoker Substance Use Type: None - Medications Home Medications: Home Medications Medication Instructions Recorded Confirmed Last Taken Type Ferrous Sulfate [Feosol 325 MG tab] 325 mg PO BID #60 tablet 11/12/16 Unknown Rx Guaifenesin/Pseudoephedrne HCl 1 tab PO BID PRN #24 tab 06/29/17 Unknown Rx [Mucinex D ER 1,200-120 mg Tab] Ibuprofen 800 mg PO TID PRN #30 tablet 06/29/17 Unknown Rx Ondansetron [Zofran Odt] 4 mg PO TID PRN #12 tab.rapdis 06/29/17 Unknown Rx Acetaminophen/Codeine [Tylenol 1 tab PO Q6H PRN #12 tab 01/31/18 Unknown Rx /Codeine # 3 tab] Ibuprofen [Motrin] 600 mg PO Q8H PRN #30 tab 01/31/18 Unknown Rx Ibuprofen [Motrin 800 MG tab] 800 mg PO Q8HR PRN #12 tablet 02/20/18 Unknown Rx methOCARBAMOL [Robaxin TAB] 500 mg PO BID #10 tab 02/20/18 Unknown Rx metroNIDAZOLE [Flagyl] 500 mg PO BID 7 Days #14 tab 04/10/19 Unknown Rx Amoxicillin/Potassium Clav 1 each PO Q12H #20 tablet 11/14/19 Unknown Rx [Augmentin 875-125 Tablet] Benzonatate [Tessalon Perles] 100 mg PO Q8HR #30 capsule 11/14/19 Unknown Rx Butalb/Acetamin/Caff 50-325-40 1 - 2 tab PO Q6HR PRN #15 tab 11/14/19 Unknown Rx [Fioricet 50-325-40] Ibuprofen [Motrin] 800 mg PO Q8HR PRN #30 tablet 11/14/19 Unknown Rx methylPREDNISolone [Medrol 4MG 4 mg PO DAILY #21 tab.ds.pk 11/14/19 Unknown Rx DOSEPAK (21 tabs)] ED Physical Exam - General Limitations: No Limitations General appearance: alert, in no apparent distress - Head Head exam: Present: atraumatic, normocephalic, normal inspection - Eye Eye exam: Present: normal appearance, PERRL, EOMI Pupils: Present: normal accommodation - ENT ENT exam: Present: normal orophraynx, mucous membranes moist, normal external ear exam, other (Palpable frontal sinus tenderness; grossly congested nasal passages; erythematous bulging tympanic membrane with effusion bilaterally) - Neck Neck exam: Present: normal inspection, full ROM. Absent: tenderness, lymphadenopathy - Respiratory Respiratory exam: Present: normal lung sounds bilaterally. Absent: respiratory distress, wheezes, rales, rhonchi, chest wall tenderness, accessory muscle use, decreased breath sounds, prolonged expiratory - Cardiovascular Cardiovascular Exam: Present: regular rate, normal rhythm, normal heart sounds. Absent: systolic murmur, diastolic murmur, rubs, gallop - GI/Abdominal GI/Abdominal exam: Present: soft, normal bowel sounds. Absent: tenderness, guarding, hyperactive bowel sounds, hypoactive bowel sounds - Extremities Exam Extremities exam: Present: normal inspection, full ROM, normal capillary refill - Back Exam Back exam: Present: normal inspection, full ROM. Absent: tenderness, CVA tenderness (R), CVA tenderness (L), muscle spasm, paraspinal tenderness, vertebral tenderness - Neurological Exam Neurological exam: Present: alert, oriented X3, CN II-XII intact, normal gait, reflexes normal - Psychiatric Psychiatric exam: Present: normal affect, normal mood - Skin Skin exam: Present: warm, dry, intact, normal color. Absent: rash ED Course Vital Signs 11/13/19 11/14/19 23:24 04:43 Temperature 98.3 F 97.8 F Pulse Rate 80 69 Respiratory 22 18 Rate Blood Pressure 169/65 131/67 O2 Sat by Pulse 98 97 Oximetry ED Medical Decision Making - Lab Data Result diagrams: 11/14/19 03:04 11/14/19 03:04 - Radiology Data Findings [facility] [address] [place] [address] XRay Report Signed Patient: VERENA ZELAYA MR#: [id number] : 1990 Acct:[id number] Age/Sex: 29 / F ADM Date: 11/13/19 Loc: ED Attending Dr: Ordering Physician: JOSE PALMA MD Date of Service: 11/13/19 Procedure(s): XR chest 1V ap Accession Number(s): [id number] cc: ED MD LOUIE Fluoro Time In Minutes: CHEST 1 VIEW 12:00 AM INDICATION / CLINICAL INFORMATION: Chest Pain. COMPARISON: 05/04/16. FINDINGS: SUPPORT DEVICES: None. HEART / MEDIASTINUM: The heart size is borderline. Pulmonary vasculature is normal. The aorta is normal in caliber. LUNGS / PLEURA: No significant pulmonary or pleural abnormality. No pneumothorax. ADDITIONAL FINDINGS: No significant additional findings. IMPRESSION: Borderline heart size without acute pulmonary disease. Signer Name: Geovanny Swanson MD Signed: 11/14/2019 12:05 AM Workstation Name: [id number] Transcribed By: RT Dictated By: Geovanny Swanson MD Electronically Authenticated By: Geovanny Swanson MD Signed Date/Time: 11/14/19 0005 DD/ 0004 TD/TT: - Medical Decision Making This is a 29-year-old -[place] female with a history of chronic morbid obesity and gestational diabetes who presents to the ED with complaint of acute onset persistent nasal and sinus congestion, frontal sinus pressure and headache, severe bilateral ear pain, persistent dry cough with pleuritic chest pain, sore throat, diffuse body aches and pains for the last 1 week. Patient states that the symptoms have worsened in the last 2 days at that she has not been able to sleep because of severe bilateral ear pain and frontal sinus pressure and headache. Patient also states that her cough is worse at night when she lays down to sleep. Patient also states that she has been taking [id number]-[id number] medications especially decongestants with no relief. In the ED, patient is alert and oriented x3 and is not in distress. The EKG shows normal sinus rhythm with a ventricular rate of 75 bpm and possible LVH changes. Chest x-ray shows borderline heart size without acute pulmonary disease. Lab test results were reviewed and are all nonactionable. Patient was treated for pain and also given oral prednisone. On reevaluation, patient felt better and was discharged home on medications including oral antibiotics for bilateral otitis media and acute frontal sinusitis. Patient was advised to return to the ED immediately if symptoms get worse, otherwise follow-up with her primary care physician in 5 to 7 days for reevaluation. - Differential Diagnosis sinusitis; pneumonia; otitis media; URI; Bronchitis; CAD Critical care attestation.: If time is entered above; I have spent that time in minutes in the direct care of this critically ill patient, excluding procedure time. ED Disposition Clinical Impression: Acute non-recurrent frontal sinusitis, Acute upper respiratory infection, Pleuritic chest pain, Acute otitis media with effusion of both ears Acute bronchitis Qualifiers: Bronchitis organism: unspecified organism Qualified Code(s): J20.9 - Acute bronchitis, unspecified Disposition: DC- TO HOME OR SELFCARE Is pt being admited?: No Does the pt Need Aspirin: No Condition: Stable Instructions: Chest Pain (ED), Acute Bronchitis (ED), Acute Bacterial Rhinosinusitis (ED), Otitis Media (ED) Additional Instructions: Take medication with food, drink plenty of fluids and follow up with your Primary care Physician in 5 to 7 days for reevaluation. Return to the ED immediately if symptoms get worse. Prescriptions: Amoxicillin/Potassium Clav [Augmentin 875-125 Tablet] 1 each PO Q12H #20 tablet Butalb/Acetamin/Caff 50-325-40 [Fioricet 50-325-40] 1 - 2 tab PO Q6HR PRN #15 tab PRN Reason: Headache methylPREDNISolone [Medrol 4MG DOSEPAK (21 tabs)] 4 mg PO DAILY #21 tab.ds.pk Ibuprofen [Motrin] 800 mg PO Q8HR PRN #30 tablet PRN Reason: Pain , Severe (7-10) Benzonatate [Tessalon Perles] 100 mg PO Q8HR #30 capsule Referrals: [facility] [Provider Group] - 3-5 Days Time of Disposition: 05:44 Print Language: BELARUSIAN
[2019-11-14] MEDS ORDERED: ASPIRIN 325 MG TAB PO ONE (02:56)
[2019-11-14 04:23] LABS: Basophils % (Auto) 0.2 % (0.0-1.8); Eosinophils # (Auto) 0.1 K/mm3 (0.0-0.4); Lymphocytes # (Auto) 2.3 K/mm3 (1.2-5.4); Lymphocytes % (Auto) 26.8 % (13.4-35.0); Mean Corpuscular HGB Conc 30 % (30-34); Monocytes # (Auto) 0.6 K/mm3 (0.0-0.8); Monocytes % (Auto) 7.2 % (0.0-7.3); Platelet Count 292 K/mm3 (140-440); Red Blood Count 5.29 M/mm3 (3.65-5.03); Red Cell Distribution Width 19.1 % (13.2-15.2)
[2019-11-14 04:40] LABS: Hematocrit 35.8 % (30.3-42.9); Hemoglobin 10.8 gm/dl (10.1-14.3); Mean Corpuscular Volume 68 fl (79-97)
[2019-11-14 04:44] VITALS: BP 131/67
[2019-11-14 04:59] LABS: Alanine Aminotransferase 18 units/L (7-56); Albumin 3.6 g/dL (3.9-5); BUN/Creatinine Ratio 16; Blood Urea Nitrogen 11 mg/dL (7-17); Calcium 8.8 mg/dL (8.4-10.2); Hemolysis Index 12
== END 2019-11-14 06:24 | disposition home or self-care (01) ==
LOC: ED 23:12
DX: J20.9 Acute bronchitis, unspecified (principal); J01.10 Acute frontal sinusitis, unspecified; H65.193 Other acute nonsuppurative otitis media, bilateral
CPT/HCPCS: 36415; 71045; 80053; 83880; 84484; 85025; 93005; 99284; J7512

== ENCOUNTER 2020-02-20 18:48 | Emergency (ER) | payer SELFPAY ==
[2020-02-20 19:41] LABS: Basophils % (Auto) 0.2 % (0.0-1.8); Eosinophils % (Auto) 0.4 % (0.0-4.3); Hematocrit 27.9 % (30.3-42.9); Hemoglobin 8.7 gm/dl (10.1-14.3); Lymphocytes # (Auto) 3.1 K/mm3 (1.2-5.4); Lymphocytes % (Auto) 28.2 % (13.4-35.0); Mean Corpuscular HGB Conc 31 % (30-34); Monocytes # (Auto) 0.8 K/mm3 (0.0-0.8); Monocytes % (Auto) 6.9 % (0.0-7.3); Platelet Count 338 K/mm3 (140-440); Red Blood Count 4.06 M/mm3 (3.65-5.03); Red Cell Distribution Width 19.1 % (13.2-15.2)
[2020-02-20 19:43] LABS: Mean Corpuscular Volume 69 fl (79-97)
[2020-02-20 20:23] LABS: Bilirubin,Urine NEG (Negative); Blood,Urine LG (Negative); Color,Urine Red (Yellow); Urobilinogen,Urine < 2.0 mg/dL (<2.0)
[2020-02-20 20:24] LABS: RBC,Urine > 182.0 /HPF (0.0-6.0)
--- NOTE | 2020-02-20 22:49 | Emergency Department Report ---
ED Female HPI - General Chief complaint: Vaginal Bleeding Stated complaint: PERIOD CLOTS 5WKS/PAIN Time Seen by Provider: 02/20/20 22:30 Source: patient Mode of arrival: Ambulatory Limitations: No Limitations - History of Present Illness Initial comments: Patient is a 29-year-old female that presents emergency room with complaints of vaginal bleeding x5 weeks. Patient states her vaginal bleeding is worsening. Patient states she has now passing large clots. Patient states she had a period in June 2019 that lasted 2 days. Patient states this recently started 5 weeks ago and is continuous. Patient states she is using 16 pads per day. Pat ient denies abdominal pain. Patient denies fever and chills. Patient denies shortness of breath. Patient denies fatigue. Patient denies syncope. Patient denies dizziness. Patient denies blurry vision. Patient states she has a history of anemia. Patient states she is not taking any vitamins at this time. Patient dates she is not seeing a RN PROGRESSIVE CARE for this problem. Patient states she has history of a tubal ligation. Patient states she is not sexually active. Patient denies vaginal pain. Patient denies vaginal discharge. Patient denies recent travel. Patient denies recent international travel. Patient denies exposure to the novel coronavirus. Patient denies sick contacts. Patient denies fever and chills. Patient denies cough. Patient denies diarrhea. Patient denies coming in contact with anybody with symptoms of the novel coronavirus. Complaint: vaginal bleeding -: Sudden Severity: severe Consistency: constant Improves with: none Worsens with: none Are you Now?: No Associated Symptoms: vaginal bleeding. denies: denies other symptoms, vaginal discharge, abdominal pain, nausea/vomiting, fever/chills, headaches, loss of appetite, dysuria, hematuria, rash, seizure, shortness of breath, syncope, weakness - Related Data Sexually active: No Previous Rx's Medication Instructions Recorded Last Taken Type Ferrous Sulfate [Feosol 325 MG tab] 325 mg PO BID #60 tablet 11/12/16 Unknown Rx Guaifenesin/Pseudoephedrne HCl 1 tab PO BID PRN #24 tab 06/29/17 Unknown Rx [Mucinex D ER 1,200-120 mg Tab] Ibuprofen 800 mg PO TID PRN #30 tablet 06/29/17 Unknown Rx Ondansetron [Zofran Odt] 4 mg PO TID PRN #12 tab.rapdis 06/29/17 Unknown Rx Acetaminophen/Codeine [Tylenol 1 tab PO Q6H PRN #12 tab 01/31/18 Unknown Rx /Codeine # 3 tab] Ibuprofen [Motrin] 600 mg PO Q8H PRN #30 tab 01/31/18 Unknown Rx Ibuprofen [Motrin 800 MG tab] 800 mg PO Q8HR PRN #12 tablet 02/20/18 Unknown Rx methOCARBAMOL [Robaxin TAB] 500 mg PO BID #10 tab 02/20/18 Unknown Rx metroNIDAZOLE [Flagyl] 500 mg PO BID 7 Days #14 tab 04/10/19 Unknown Rx Amoxicillin/Potassium Clav 1 each PO Q12H #20 tablet 11/14/19 Unknown Rx [Augmentin 875-125 Tablet] Benzonatate [Tessalon Perles] 100 mg PO Q8HR #30 capsule 11/14/19 Unknown Rx Butalb/Acetamin/Caff 50-325-40 1 - 2 tab PO Q6HR PRN #15 tab 11/14/19 Unknown Rx [Fioricet 50-325-40] Ibuprofen [Motrin] 800 mg PO Q8HR PRN #30 tablet 11/14/19 Unknown Rx methylPREDNISolone [Medrol 4MG 4 mg PO DAILY #21 tab.ds.pk 11/14/19 Unknown Rx DOSEPAK (21 tabs)] Iron Fum,Ps/Folic/Bcomp,C No.9 1 each PO BID 30 Days #60 capsule 02/20/20 Unknown Rx [Integra Plus Capsule] Allergies Allergy/AdvReac Type Severity Reaction Status Date / Time No Known Allergies Allergy Verified 09/14/14 23:11 ED Review of Systems ROS: Stated complaint: PERIOD CLOTS 5WKS/PAIN Other details as noted in HPI Constitutional: denies: chills, fever Eyes: denies: eye pain, eye discharge, vision change ENT: denies: ear pain, throat pain Respiratory: denies: cough, shortness of breath, wheezing Cardiovascular: denies: chest pain, palpitations Endocrine: no symptoms reported Gastrointestinal: denies: abdominal pain, nausea, diarrhea Genitourinary: as per HPI, abnormal menses. denies: urgency, dysuria, discharge Musculoskeletal: denies: back pain, joint swelling, arthralgia Skin: denies: rash, lesions Neurological: denies: headache, weakness, paresthesias Psychiatric: denies: anxiety, depression Hematological/Lymphatic: denies: easy bleeding, easy bruising ED Past Medical Hx - Past Medical History Previous Medical History?: Yes Hx Hypertension: No Hx Heart Attack/AMI: No Hx Congestive Heart Failure: No Hx Diabetes: Yes (gestational only) Hx Deep Vein Thrombosis: No Hx Liver Disease: No Hx Renal Disease: No Hx Sickle Cell Disease: No Hx Seizures: No Hx Asthma: No Hx COPD: No Hx HIV: No Additional medical history: Anemia - Surgical History Past Surgical History?: Yes Hx Pacemaker: No Hx Internal Defibrillator: No Additional Surgical History: c/s x 1. tubal ligation. T&A. wisdom teeth - Family History Family history: no significant - Social History Smoking Status: Never Smoker Substance Use Type: None - Medications Home Medications: Home Medications Medication Instructions Recorded Confirmed Last Taken Type Ferrous Sulfate [Feosol 325 MG tab] 325 mg PO BID #60 tablet 11/12/16 Unknown Rx Guaifenesin/Pseudoephedrne HCl 1 tab PO BID PRN #24 tab 06/29/17 Unknown Rx [Mucinex D ER 1,200-120 mg Tab] Ibuprofen 800 mg PO TID PRN #30 tablet 06/29/17 Unknown Rx Ondansetron [Zofran Odt] 4 mg PO TID PRN #12 tab.rapdis 06/29/17 Unknown Rx Acetaminophen/Codeine [Tylenol 1 tab PO Q6H PRN #12 tab 01/31/18 Unknown Rx /Codeine # 3 tab] Ibuprofen [Motrin] 600 mg PO Q8H PRN #30 tab 01/31/18 Unknown Rx Ibuprofen [Motrin 800 MG tab] 800 mg PO Q8HR PRN #12 tablet 02/20/18 Unknown Rx methOCARBAMOL [Robaxin TAB] 500 mg PO BID #10 tab 02/20/18 Unknown Rx metroNIDAZOLE [Flagyl] 500 mg PO BID 7 Days #14 tab 04/10/19 Unknown Rx Amoxicillin/Potassium Clav 1 each PO Q12H #20 tablet 11/14/19 Unknown Rx [Augmentin 875-125 Tablet] Benzonatate [Tessalon Perles] 100 mg PO Q8HR #30 capsule 11/14/19 Unknown Rx Butalb/Acetamin/Caff 50-325-40 1 - 2 tab PO Q6HR PRN #15 tab 11/14/19 Unknown Rx [Fioricet 50-325-40] Ibuprofen [Motrin] 800 mg PO Q8HR PRN #30 tablet 11/14/19 Unknown Rx methylPREDNISolone [Medrol 4MG 4 mg PO DAILY #21 tab.ds.pk 11/14/19 Unknown Rx DOSEPAK (21 tabs)] Iron Fum,Ps/Folic/Bcomp,C No.9 1 each PO BID 30 Days #60 capsule 02/20/20 Unknown Rx [Integra Plus Capsule] ED Physical Exam - General Limitations: No Limitations General appearance: alert, in no apparent distress, obese - Head Head exam: Present: atraumatic, normocephalic - Eye Eye exam: Present: normal appearance - ENT ENT exam: Present: mucous membranes moist - Neck Neck exam: Present: normal inspection - Respiratory Respiratory exam: Present: normal lung sounds bilaterally. Absent: respiratory distress - Cardiovascular Cardiovascular Exam: Present: regular rate, normal rhythm. Absent: systolic murmur, diastolic murmur, rubs, gallop - GI/Abdominal GI/Abdominal exam: Present: soft, normal bowel sounds - Extremities Exam Extremities exam: Present: normal inspection - Back Exam Back exam: Present: normal inspection - Neurological Exam Neurological exam: Present: alert, oriented X3 - Psychiatric Psychiatric exam: Present: normal affect, normal mood - Skin Skin exam: Present: warm, dry, intact, normal color. Absent: rash ED Course Vital Signs 02/20/20 02/20/20 18:57 23:00 Temperature 98.6 F 98.1 F Pulse Rate 80 Respiratory 18 18 Rate Blood Pressure 157/71 Blood Pressure 155/75 [Left] O2 Sat by Pulse 99 98 Oximetry - Reevaluation(s) Reevaluation #1: I discussed all results and clinical findings with patient. I discussed plan of care with patient. Patient agrees with plan of care. Patient is stable for discharge. Patient will be discharged home. Patient given discharge instructions. Patient voiced understanding of discharge instructions. 02/20/20 22:47 ED Medical Decision Making - Lab Data Result diagrams: 02/20/20 18:59 - Medical Decision Making Patient is a 29-year-old female that presents emergency room with complaints of vaginal bleeding x5 weeks. Patient states she is plastic large clots. Patient states she has history of tubal ligation. Patient states her previous period was in June 2019 and only lasted 2 days. Patient states is recent. Started 5 weeks ago and she is now passing clots. Patient states she is going through 16 pads per day. Patient had labs done. Patient's labs are significant for anemia. Patient's UA shows hematuria however the patient is currently on her cycle. Patient is negative. Patient will need to follow-up with a office technology professor as an outpatient. Patient will need further evaluation as an outpatient. Patient not require further emergency medical services. Patient not require inpatient services. - Differential Diagnosis Anemia, abnormal menses, heavy menses, irregular menses Critical care attestation.: If time is entered above; I have spent that time in minutes in the direct care of this critically ill patient, excluding procedure time. ED Disposition Clinical Impression: Iron deficiency anemia due to chronic blood loss Menorrhagia Qualifiers: Menorrhagia type: with irregular cycle Qualified Code(s): N92.1 - Excessive and frequent menstruation with irregular cycle Anemia Qualifiers: Anemia type: unspecified type Qualified Code(s): D64.9 - Anemia, unspecified Disposition: DC-01 TO HOME OR SELFCARE Is pt being admited?: No Does the pt Need Aspirin: No Condition: Stable Instructions: Iron Rich Diet (ED), Iron Deficiency Anemia (ED), Menorrhagia (ED), Anemia (ED) Additional Instructions: Patient to follow-up with primary care in 2 to 3 days. Patient to follow-up with RN PROGRESSIVE CARE in 2 to 3 days. Patient to rest. Patient to increase water. Patient to avoid strenuous exercise or heavy lifting until cleared by RN PROGRESSIVE CARE. Patient to take Tylenol or ibuprofen as needed for pain. Patient to take meds as directed. Patient to return to the ER if condition worsens, changes or new symptoms arise. Prescriptions: Iron Fum,Ps/Folic/Bcomp,C No.9 [Integra Plus Capsule] 1 each PO BID 30 Days #60 capsule Referrals: RIAN ALCANTAR MD [Primary Care Provider] - 2-3 Days ÓSCAR GALEAS MD [Staff Physician] - 2-3 Days Time of Disposition: 22:47
[2020-02-21 00:36] VITALS: BP 155/75
== END 2020-02-20 23:00 | disposition home or self-care (01) ==
LOC: ED 18:48
DX: N92.1 Excessive and frequent menstruation with irregular cycle (principal); D50.8 Other iron deficiency anemias; E11.9 Type 2 diabetes mellitus without complications; Z98.51 Tubal ligation status
CPT/HCPCS: 36415; 81001; 84703; 85025; 87086; 99283

== ENCOUNTER 2020-03-16 11:16 | Emergency (ER) | payer SELFPAY ==
[2020-03-16 11:37] VITALS: BP 140/90
--- NOTE | 2020-03-16 12:23 | Emergency Department Report ---
Minor Respiratory - HPI Chief Complaint: Dyspnea/Respdistress Stated Complaint: COUGHING, SOB Duration: 5 Days Pain Location: Chest Severity: moderate Minor Respiratory: Yes Cough, Yes Shortness of Breath, No Sore Throat, No Able to Tolerate Fluids, No Ear Pain, No Hemoptysis, No Chest Pain, No Fever Other History: Morbidly obese F [place] female with no significant past medical history presents emerged department complaining of no long history of cough congestion coryza with mucus production and some shortness of breath as well. Reports no hemoptysis no hematemesis no hematochezia. Reports no rashes. ED Review of Systems ROS: Stated complaint: COUGHING, SOB Other details as noted in HPI Comment: All other systems reviewed and negative ED Past Medical Hx - Past Medical History Previous Medical History?: No Hx Hypertension: No Hx Heart Attack/AMI: No Hx Congestive Heart Failure: No Hx Diabetes: Yes (gestational only) Hx Deep Vein Thrombosis: No Hx Liver Disease: No Hx Renal Disease: No Hx Sickle Cell Disease: No Hx Seizures: No Hx Asthma: No Hx COPD: No Hx HIV: No Additional medical history: Anemia - Surgical History Hx Pacemaker: No Hx Internal Defibrillator: No Additional Surgical History: c/s x 1. tubal ligation. T&A. wisdom teeth - Social History Smoking Status: Never Smoker Substance Use Type: None - Medications Home Medications: Home Medications Medication Instructions Recorded Confirmed Last Taken Type Ferrous Sulfate [Feosol 325 MG tab] 325 mg PO BID #60 tablet 11/12/16 Unknown Rx Guaifenesin/Pseudoephedrne HCl 1 tab PO BID PRN #24 tab 06/29/17 Unknown Rx [Mucinex D ER 1,200-120 mg Tab] Ibuprofen 800 mg PO TID PRN #30 tablet 06/29/17 Unknown Rx Ondansetron [Zofran Odt] 4 mg PO TID PRN #12 tab.rapdis 06/29/17 Unknown Rx Acetaminophen/Codeine [Tylenol 1 tab PO Q6H PRN #12 tab 01/31/18 Unknown Rx /Codeine # 3 tab] Ibuprofen [Motrin] 600 mg PO Q8H PRN #30 tab 01/31/18 Unknown Rx Ibuprofen [Motrin 800 MG tab] 800 mg PO Q8HR PRN #12 tablet 02/20/18 Unknown Rx methOCARBAMOL [Robaxin TAB] 500 mg PO BID #10 tab 02/20/18 Unknown Rx metroNIDAZOLE [Flagyl] 500 mg PO BID 7 Days #14 tab 04/10/19 Unknown Rx Amoxicillin/Potassium Clav 1 each PO Q12H #20 tablet 11/14/19 Unknown Rx [Augmentin 875-125 Tablet] Benzonatate [Tessalon Perles] 100 mg PO Q8HR #30 capsule 11/14/19 Unknown Rx Butalb/Acetamin/Caff 50-325-40 1 - 2 tab PO Q6HR PRN #15 tab 11/14/19 Unknown Rx [Fioricet 50-325-40] Ibuprofen [Motrin] 800 mg PO Q8HR PRN #30 tablet 11/14/19 Unknown Rx methylPREDNISolone [Medrol 4MG 4 mg PO DAILY #21 tab.ds.pk 11/14/19 Unknown Rx DOSEPAK (21 tabs)] Iron Fum,Ps/Folic/Bcomp,C No.9 1 each PO BID 30 Days #60 capsule 02/20/20 Unknown Rx [Integra Plus Capsule] Albuterol Mdi (or & Nicu Only) 1 puff IH Q4-6H PRN #1 inha 03/16/20 Unknown Rx [ProAir HFA Inhaler] Benzonatate [Tessalon Perles] 100 mg PO Q8HR #20 capsule 03/16/20 Unknown Rx predniSONE [Deltasone] 20 mg PO QDAY #5 tab 03/16/20 Unknown Rx Minor Respiratory Exam - Exam General: Vital signs noted. No distress. Alert and acting appropriately. HEENT: Yes Moist Mucous Membranes, No Pharyngeal Erythema, No Pharyngeal Exudat es, No Rhinorrhea, No Conjuctival Injection, No Frontal Tenderness, No Maxillary Tenderness Ear: Neither TM Bulge, Neither TM Erythema, Neither EAC Pain, Neither EAC Discharge Neck: Yes Supple, No Adenopathy Lungs: Yes Good Air Exchange, Yes Cough, No Wheezes, No Ronchi, No Stridor, No Labored Respirations, No Retractions, No Use of Accessory Muscles, No Other Abnormal Lung Sounds Heart: Yes Regular, No Murmur Abdomen: Yes Normal Bowel Sounds, No Tenderness, No Peritoneal Signs Skin: No Rash, No Edema Neurologic: Alert and oriented, no deficits. Musculoskeletal: Unremarkable. ED Course Vital Signs 03/16/20 11:37 Temperature 98.5 F Pulse Rate 101 H Respiratory 22 Rate Blood Pressure 140/90 [Right] O2 Sat by Pulse 98 Oximetry ED Medical Decision Making - Radiology Data Radiology results: report reviewed [facility] [address] [place] [address] XRay Report Signed Patient: VERENA ZELAYA MR#: [id number] : 1990 Acct:[id number] Age/Sex: 29 / F ADM Date: 03/16/20 Loc: ED Attending Dr: Ordering Physician: JILLIAN LOCKETT Date of Service: 03/16/20 Procedure(s): XR chest routine 2V Accession Number(s): [id number] cc: JILLIAN LOCKETT Fluoro Time In Minutes: CHEST PA AND LATERAL VIEWS INDICATION: sob and cough. COMPARISON: 11/14/2019 FINDINGS: Support devices: None. Heart: Stable. Lungs/Pleura: No acute pulmonary or pleural findings. IMPRESSION: 1. No acute findings. Signer Name: Carl Mercedes MD Signed: 03/16/2020 1:30 PM Workstation Name: [id number] Transcribed By: ANNE-MARIE Dictated By: Carl Mercedes MD Electronically Authenticated By: Carl Mercedes MD Signed Date/Time: 03/16/201329 DD/ 29 TD/TT: - Medical Decision Making This patient presents with acute cough, most consistent with URI/bronchitis. Differential diagnosis includes URI, bronchitis, hyperreactive airway disease, pneumonia. Presentation not consistent with acute bacterial pneumonia, influenz a, asthma, transient airway hyperresponsiveness. Presentation not consistent with chronic causes of cough (including GERD, asthma, postnasal discharge, medication side effect, CHF, lung cancer or mass). Plan: supportive care treat symptoms health health follow-up with the primary care provider at this point in time no infectious process is present The chest x-ray was read as normal Critical care attestation.: If time is entered above; I have spent that time in minutes in the direct care of this critically ill patient, excluding procedure time. ED Disposition Clinical Impression: Cough, Bronchitis Disposition: DC-01 TO HOME OR SELFCARE Is pt being admited?: No Does the pt Need Aspirin: No Condition: Stable Instructions: Cool Mist Vaporizer, Cough, Adult, [id number], How to Use a Metered Dose Inhaler, Cough, Adult, Chronic Bronchitis (ED) Prescriptions: predniSONE [Deltasone] 20 mg PO QDAY #5 tab Albuterol Mdi (or & Nicu Only) [ProAir HFA Inhaler] 1 puff IH Q4-6H PRN #1 inha PRN Reason: Cough Benzonatate [Tessalon Perles] 100 mg PO Q8HR #20 capsule Referrals: [facility] [Provider Group] - 3-5 Days
--- NOTE | 2020-03-16 13:35 | XRay Report ---
CHEST PA AND LATERAL VIEWS INDICATION: sob and cough. COMPARISON: 11/14/2019 FINDINGS: Support devices: None. Heart: Stable. Lungs/Pleura: No acute pulmonary or pleural findings. IMPRESSION: 1. No acute findings. Signer Name: Carl Mercedes MD Signed: 03/16/2020 1:30 PM Workstation Name: [id number]
== END 2020-03-16 13:34 | disposition home or self-care (01) ==
LOC: ED 11:16
DX: J40 Bronchitis, not specified as acute or chronic (principal); R05 Cough; D64.9 Anemia, unspecified; Z79.899 Other long term (current) drug therapy; Z98.51 Tubal ligation status; Z98.890 Other specified postprocedural states
CPT/HCPCS: 71046; 99283

== ENCOUNTER 2020-04-27 21:11 | Emergency (ER) | payer SELFPAY ==
[2020-04-27 22:44] LABS: Basophils % (Auto) 0.3 % (0.0-1.8); Eosinophils % (Auto) 0.1 % (0.0-4.3); Lymphocytes # (Auto) 3.8 K/mm3 (1.2-5.4); Lymphocytes % (Auto) 37.7 % (13.4-35.0); Mean Corpuscular HGB Conc 29 % (30-34); Monocytes # (Auto) 0.8 K/mm3 (0.0-0.8); Monocytes % (Auto) 8.4 % (0.0-7.3); Platelet Count 414 K/mm3 (140-440); Red Blood Count 4.17 M/mm3 (3.65-5.03)
[2020-04-27 22:48] LABS: Hematocrit 23.9 % (30.3-42.9); Hemoglobin 6.8 gm/dl (10.1-14.3); Mean Corpuscular Volume 57 fl (79-97); Red Cell Distribution Width 21.4 % (13.2-15.2)
[2020-04-27 22:55] LABS: Bilirubin,Urine NEG (Negative); Blood,Urine NEG (Negative); Color,Urine Yellow (Yellow); Mucus,Urine FEW /HPF; Protein,Urine <15 mg/dL mg/dL (Negative); Urobilinogen,Urine < 2.0 mg/dL (<2.0)
[2020-04-27 23:00] LABS: Alanine Aminotransferase 13 units/L (7-56); Albumin 4.1 g/dL (3.9-5); BUN/Creatinine Ratio 12; Blood Urea Nitrogen 12 mg/dL (7-17); Calcium 8.8 mg/dL (8.4-10.2); Hemolysis Index 0
[2020-04-28 01:07] VITALS: BP 133/79
[2020-04-28] MEDS ORDERED: LIDOCAINE-MPF (1%) 10 MG/1 ML VIAL 5 ML INFILTRATI ONE (02:10)
[2020-04-28] MEDS ORDERED: AZITHROMYCIN 250 MG TAB PO ONE (02:10)
--- NOTE | 2020-04-28 03:09 | Emergency Department Report ---
ED General Adult HPI - General Chief complaint: Headache Stated complaint: SOB Time Seen by Provider: 04/28/20 02:07 Source: patient Mode of arrival: Ambulatory Limitations: No Limitations - History of Present Illness Initial comments: Patient is a 29-year-old female who presents for frontal sinus pain, pressure and fever x3 days. now with clear postnasal drip and sinus headache . has hx of recurring AOM. Patient states intermittent fever and malaise with same. Patient now states secondary complaint of STD exposure. Patient denies nausea vomiting. No pelvic pain. Requesting prophylactic treatment for STD exposure. - Related Data Previous Rx's Medication Instructions Recorded Last Taken Type Ferrous Sulfate [Feosol 325 MG tab] 325 mg PO BID #60 tablet 11/12/16 Unknown Rx Guaifenesin/Pseudoephedrne HCl 1 tab PO BID PRN #24 tab 06/29/17 Unknown Rx [Mucinex D ER 1,200-120 mg Tab] Ibuprofen 800 mg PO TID PRN #30 tablet 06/29/17 Unknown Rx Ondansetron [Zofran Odt] 4 mg PO TID PRN #12 tab.rapdis 06/29/17 Unknown Rx Acetaminophen/Codeine [Tylenol 1 tab PO Q6H PRN #12 tab 01/31/18 Unknown Rx /Codeine # 3 tab] Ibuprofen [Motrin] 600 mg PO Q8H PRN #30 tab 01/31/18 Unknown Rx Ibuprofen [Motrin 800 MG tab] 800 mg PO Q8HR PRN #12 tablet 02/20/18 Unknown Rx methOCARBAMOL [Robaxin TAB] 500 mg PO BID #10 tab 02/20/18 Unknown Rx metroNIDAZOLE [Flagyl] 500 mg PO BID 7 Days #14 tab 04/10/19 Unknown Rx Amoxicillin/Potassium Clav 1 each PO Q12H #20 tablet 11/14/19 Unknown Rx [Augmentin 875-125 Tablet] Benzonatate [Tessalon Perles] 100 mg PO Q8HR #30 capsule 11/14/19 Unknown Rx Butalb/Acetamin/Caff 50-325-40 1 - 2 tab PO Q6HR PRN #15 tab 11/14/19 Unknown Rx [Fioricet 50-325-40] Ibuprofen [Motrin] 800 mg PO Q8HR PRN #30 tablet 11/14/19 Unknown Rx methylPREDNISolone [Medrol 4MG 4 mg PO DAILY #21 tab.ds.pk 11/14/19 Unknown Rx DOSEPAK (21 tabs)] Iron Fum,Ps/Folic/Bcomp,C No.9 1 each PO BID 30 Days #60 capsule 02/20/20 Unknown Rx [Integra Plus Capsule] Albuterol Mdi (or & Nicu Only) 1 puff IH Q4-6H PRN #1 inha 03/16/20 Unknown Rx [ProAir HFA Inhaler] Benzonatate [Tessalon Perles] 100 mg PO Q8HR #20 capsule 03/16/20 Unknown Rx predniSONE [Deltasone] 20 mg PO QDAY #5 tab 03/16/20 Unknown Rx Fluconazole (Nf) [Diflucan TAB] 150 mg PO ONCE #1 tablet 04/28/20 Unknown Rx metroNIDAZOLE [Flagyl] 500 mg PO BID 7 Days #14 tab 04/28/20 Unknown Rx Allergies Allergy/AdvReac Type Severity Reaction Status Date / Time No Known Allergies Allergy Verified 09/14/14 23:11 ED Review of Systems ROS: Stated complaint: SOB Other details as noted in HPI Constitutional: denies: chills, fever Eyes: denies: eye pain, eye discharge, vision change ENT: ear pain, congestion. denies: throat pain Respiratory: denies: cough, shortness of breath, wheezing Cardiovascular: denies: chest pain, palpitations Endocrine: no symptoms reported Gastrointestinal: denies: abdominal pain, nausea, diarrhea Genitourinary: denies: urgency, dysuria, discharge Musculoskeletal: denies: back pain, joint swelling, arthralgia Skin: denies: rash, lesions Neurological: denies: headache, weakness, paresthesias Psychiatric: denies: anxiety, depression Hematological/Lymphatic: denies: easy bleeding, easy bruising ED Past Medical Hx - Past Medical History Previous Medical History?: Yes Hx Hypertension: No Hx Heart Attack/AMI: No Hx Congestive Heart Failure: No Hx Diabetes: Yes (gestational only) Hx Deep Vein Thrombosis: No Hx Liver Disease: No Hx Renal Disease: No Hx Sickle Cell Disease: No Hx Seizures: No Hx Asthma: No Hx COPD: No Hx HIV: No Additional medical history: Anemia. bronchitis - Surgical History Past Surgical History?: Yes Hx Pacemaker: No Hx Internal Defibrillator: No Additional Surgical History: c/s x 1. tubal ligation. T&A. wisdom teeth - Social History Smoking Status: Never Smoker Substance Use Type: None - Medications Home Medications: Home Medications Medication Instructions Recorded Confirmed Last Taken Type Ferrous Sulfate [Feosol 325 MG tab] 325 mg PO BID #60 tablet 11/12/16 Unknown Rx Guaifenesin/Pseudoephedrne HCl 1 tab PO BID PRN #24 tab 06/29/17 Unknown Rx [Mucinex D ER 1,200-120 mg Tab] Ibuprofen 800 mg PO TID PRN #30 tablet 06/29/17 Unknown Rx Ondansetron [Zofran Odt] 4 mg PO TID PRN #12 tab.rapdis 06/29/17 Unknown Rx Acetaminophen/Codeine [Tylenol 1 tab PO Q6H PRN #12 tab 01/31/18 Unknown Rx /Codeine # 3 tab] Ibuprofen [Motrin] 600 mg PO Q8H PRN #30 tab 01/31/18 Unknown Rx Ibuprofen [Motrin 800 MG tab] 800 mg PO Q8HR PRN #12 tablet 02/20/18 Unknown Rx methOCARBAMOL [Robaxin TAB] 500 mg PO BID #10 tab 02/20/18 Unknown Rx metroNIDAZOLE [Flagyl] 500 mg PO BID 7 Days #14 tab 04/10/19 Unknown Rx Amoxicillin/Potassium Clav 1 each PO Q12H #20 tablet 11/14/19 Unknown Rx [Augmentin 875-125 Tablet] Benzonatate [Tessalon Perles] 100 mg PO Q8HR #30 capsule 11/14/19 Unknown Rx Butalb/Acetamin/Caff 50-325-40 1 - 2 tab PO Q6HR PRN #15 tab 11/14/19 Unknown Rx [Fioricet 50-325-40] Ibuprofen [Motrin] 800 mg PO Q8HR PRN #30 tablet 11/14/19 Unknown Rx methylPREDNISolone [Medrol 4MG 4 mg PO DAILY #21 tab.ds.pk 11/14/19 Unknown Rx DOSEPAK (21 tabs)] Iron Fum,Ps/Folic/Bcomp,C No.9 1 each PO BID 30 Days #60 capsule 02/20/20 Unknown Rx [Integra Plus Capsule] Albuterol Mdi (or & Nicu Only) 1 puff IH Q4-6H PRN #1 inha 03/16/20 Unknown Rx [ProAir HFA Inhaler] Benzonatate [Tessalon Perles] 100 mg PO Q8HR #20 capsule 03/16/20 Unknown Rx predniSONE [Deltasone] 20 mg PO QDAY #5 tab 03/16/20 Unknown Rx Fluconazole (Nf) [Diflucan TAB] 150 mg PO ONCE #1 tablet 04/28/20 Unknown Rx metroNIDAZOLE [Flagyl] 500 mg PO BID 7 Days #14 tab 04/28/20 Unknown Rx ED Physical Exam - General Limitations: No Limitations General appearance: alert, in no apparent distress - Head Head exam: Present: atraumatic, normocephalic - Eye Eye exam: Present: PERRL, EOMI. Absent: conjunctival injection, nystagmus Pupils: Present: normal accommodation - ENT ENT exam: Present: mucous membranes moist, other (bilat maxillary sinus pain to palpation, turbinates boggy, erythema ) - Expanded ENT Exam Expanded Ear exam: Present: normal external inspection TM/Canal exam: Erythema: Right TM, Canal Tenderness: Right TM Mouth exam: Absent: trismus Throat exam: Positive: tonsillar erythema, other (uvula midline no exudate no lesion air is patent no stridor no wheezing ). Negative: tonsillomegaly, tonsillar exudate, R peritonsillar mass, L peritonsillar mass - Neck Neck exam: Present: normal inspection, full ROM, lymphadenopathy. Absent: tenderness - Respiratory Respiratory exam: Present: normal lung sounds bilaterally. Absent: respiratory distress, wheezes, stridor, chest wall tenderness - Cardiovascular Cardiovascular Exam: Present: regular rate, normal rhythm, normal heart sounds. Absent: systolic murmur, diastolic murmur, rubs, gallop - GI/Abdominal GI/Abdominal exam: Present: soft, normal bowel sounds. Absent: distended, tenderness, bruit, hernia - Rectal Rectal exam: Present: deferred - External exam: Present: other (defered by patient ) - Extremities Exam Extremities exam: Present: normal inspection - Back Exam Back exam: Present: normal inspection, full ROM. Absent: tenderness, CVA tenderness (R), CVA tenderness (L), vertebral tenderness - Neurological Exam Neurological exam: Present: alert, oriented X3, CN II-XII intact, normal gait - Psychiatric Psychiatric exam: Present: normal affect - Skin Skin exam: Present: warm, dry, intact, normal color. Absent: rash ED Course Vital Signs 04/27/20 04/28/20 21:59 01:00 Temperature 99.9 F H 98.4 F Pulse Rate 104 H 100 H Respiratory 19 18 Rate Blood Pressure 153/68 Blood Pressure 133/79 [Right] O2 Sat by Pulse 96 100 Oximetry ED Medical Decision Making - Lab Data Result diagrams: 04/27/20 22:20 04/27/20 22:20 Labs 04/27/20 04/27/20 04/27/20 22:20 22:20 22:20 WBC 10.1 RBC 4.17 Hgb 6.8 L Hct 23.9 L MCV 57 L MCH 16 L MCHC 29 L RDW 21.4 H Plt Count 414 Lymph % (Auto) 37.7 H [place] % (Auto) 8.4 H Eos % (Auto) 0.1 Baso % (Auto) 0.3 Lymph # (Auto) 3.8 [place] # (Auto) 0.8 Eos # (Auto) 0.0 Baso # (Auto) 0.0 Seg Neutrophils % 53.5 Seg Neutrophils # 5.4 Sodium 136 L Potassium 4.1 Chloride 99.4 Carbon Dioxide 22 Anion Gap 19 BUN 12 Creatinine 1.0 Estimated GFR > 60 BUN/Creatinine Ratio 12 Glucose 136 H Calcium 8.8 Total Bilirubin 0.20 AST 20 ALT 13 Alkaline Phosphatase 55 Total Protein 8.0 Albumin 4.1 Albumin/Globulin Ratio 1.1 Lipase 21 HCG, Qual Negative Urine Color Urine Turbidity Urine pH Ur Specific [place] Urine Protein Urine Glucose (UA) Urine Ketones Urine Blood Urine Nitrite Urine Bilirubin Urine Urobilinogen Ur Leukocyte Esterase Urine WBC (Auto) Urine RBC (Auto) U Epithel Cells (Auto) Urine Mucus 04/27/20 Unknown WBC RBC Hgb Hct MCV MCH MCHC RDW Plt Count Lymph % (Auto) [place] % (Auto) Eos % (Auto) Baso % (Auto) Lymph # (Auto) [place] # (Auto) Eos # (Auto) Baso # (Auto) Seg Neutrophils % Seg Neutrophils # Sodium Potassium Chloride Carbon Dioxide Anion Gap BUN Creatinine Estimated GFR BUN/Creatinine Ratio Glucose Calcium Total Bilirubin AST ALT Alkaline Phosphatase Total Protein Albumin Albumin/Globulin Ratio Lipase HCG, Qual Urine Color Yellow Urine Turbidity Clear Urine pH 6.0 Ur Specific [place] 1.021 Urine Protein <15 mg/dl Urine Glucose (UA) Neg Urine Ketones Neg Urine Blood Neg Urine Nitrite Neg Urine Bilirubin Neg Urine Urobilinogen < 2.0 Ur Leukocyte Esterase Neg Urine WBC (Auto) 3.0 Urine RBC (Auto) 2.0 U Epithel Cells (Auto) 2.0 Urine Mucus Few - Medical Decision Making Plan we will treat for sinusitis, STI exposure. Patient will be DC'd to home with prescriptions. Patient will follow up primary care doctor in 2 to 3 days. Patient will follow-up with health department for HIV screening. Patient verbalized agreement and understanding with discharge plan. Patient DC'd home in stable condition at this time. Critical care attestation.: If time is entered above; I have spent that time in minutes in the direct care of this critically ill patient, excluding procedure time. ED Disposition Clinical Impression: STD exposure Sinusitis Qualifiers: Sinusitis location: maxillary Chronicity: acute Recurrence: non-recurrent Qualified Code(s): J01.00 - Acute maxillary sinusitis, unspecified Disposition: DC-01 TO HOME OR SELFCARE Is pt being admited?: No Does the pt Need Aspirin: No Condition: Stable Instructions: Sinusitis, Adult, Cervicitis, [id number] Prescriptions: Fluconazole (Nf) [Diflucan TAB] 150 mg PO ONCE #1 tablet metroNIDAZOLE [Flagyl] 500 mg PO BID 7 Days #14 tab Referrals: KIARA OSBORNE MD [Staff Physician] - 3-5 Days MERCEDES HOLLIS MD [Staff Physician] - 3-5 Days Forms: Work/School Release Form(ED) Time of Disposition: 03:18
== END 2020-04-28 03:25 | disposition home or self-care (01) ==
LOC: ED 21:11
DX: J32.9 Chronic sinusitis, unspecified (principal); E11.9 Type 2 diabetes mellitus without complications; D64.9 Anemia, unspecified; Z98.890 Other specified postprocedural states; Z98.51 Tubal ligation status; Z20.2 Contact with and (suspected) exposure to infections with a predominantly sexual mode of transmission; Z79.899 Other long term (current) drug therapy
CPT/HCPCS: 36415; 80053; 81001; 83690; 84703; 85025; 96372; 99283; J0696

== ENCOUNTER 2021-07-01 08:34 | Emergency (ER) | payer SELFPAY ==
[2021-07-01 09:23] VITALS: BP 150/84
--- NOTE | 2021-07-01 09:39 | Emergency Department Report ---
ED Female HPI - General Chief complaint: Vaginal Bleeding Stated complaint: HEAVY PAINFUL CYCLE SINCE MAY Time Seen by Provider: 07/01/21 08:54 Source: patient Mode of arrival: Ambulatory Limitations: No Limitations - History of Present Illness Initial comments: 30-year-old severely morbid obese -[place] female presents to the emergency room for heavy menstrual cycle since May. Patient states that she has gone through 5-6 overnight pads a day. She does not have her PROJECT GEOLOGIST. She is has a history of a tubal ligation. She complains of lower abdominal pain 6 out of 10. She is taking nothing for pain. Admits to dizziness weakness denies any shortness of breath chest pain. She is 3 para to 3. MD Complaint: vaginal bleeding Onset/Timin -: month(s) Location: suprapubic Radiation: suprapubic Severity scale (0 -10): 6 Quality: cramping Consistency: intermittent Improves with: none - Related Data Previous Rx's Medication Instructions Recorded Last Taken Type Ferrous Sulfate [Feosol 325 MG tab] 325 mg PO BID #60 tablet 11/12/16 Unknown Rx Guaifenesin/Pseudoephedrne HCl 1 tab PO BID PRN #24 tab 06/29/17 Unknown Rx [Mucinex D ER 1,200-120 mg Tab] Ibuprofen 800 mg PO TID PRN #30 tablet 06/29/17 Unknown Rx Ondansetron [Zofran Odt] 4 mg PO TID PRN #12 tab.rapdis 06/29/17 Unknown Rx Acetaminophen/Codeine [Tylenol 1 tab PO Q6H PRN #12 tab 01/31/18 Unknown Rx /Codeine # 3 tab] Ibuprofen [Motrin] 600 mg PO Q8H PRN #30 tab 01/31/18 Unknown Rx Ibuprofen [Motrin 800 MG tab] 800 mg PO Q8HR PRN #12 tablet 02/20/18 Unknown Rx methOCARBAMOL [Robaxin TAB] 500 mg PO BID #10 tab 02/20/18 Unknown Rx metroNIDAZOLE [Flagyl] 500 mg PO BID 7 Days #14 tab 04/10/19 Unknown Rx Amoxicillin/Potassium Clav 1 each PO Q12H #20 tablet 11/14/19 Unknown Rx [Augmentin 875-125 Tablet] Benzonatate [Tessalon Perles] 100 mg PO Q8HR #30 capsule 11/14/19 Unknown Rx Butalb/Acetamin/Caff 50-325-40 1 - 2 tab PO Q6HR PRN #15 tab 11/14/19 Unknown Rx [Fioricet 50-325-40] Ibuprofen [Motrin] 800 mg PO Q8HR PRN #30 tablet 11/14/19 Unknown Rx methylPREDNISolone [Medrol 4MG 4 mg PO DAILY #21 tab.ds.pk 11/14/19 Unknown Rx DOSEPAK (21 tabs)] Albuterol Mdi (or & Nicu Only) 1 puff IH Q4-6H PRN #1 inha 03/16/20 Unknown Rx [ProAir HFA Inhaler] Benzonatate [Tessalon Perles] 100 mg PO Q8HR #20 capsule 03/16/20 Unknown Rx predniSONE [Deltasone] 20 mg PO QDAY #5 tab 03/16/20 Unknown Rx Fluconazole (Nf) [Diflucan TAB] 150 mg PO ONCE #1 tablet 04/28/20 Unknown Rx metroNIDAZOLE [Flagyl] 500 mg PO BID 7 Days #14 tab 04/28/20 Unknown Rx Iron Fum,Ps/Folic/Bcomp,C No.9 1 each PO BID 30 Days #60 capsule 07/01/21 Unknown Rx [Integra Plus Capsule] medroxyPROGESTERone ACETATE 10 mg PO QDAY #10 1000units 07/01/21 Unknown Rx [Provera] Allergies Allergy/AdvReac Type Severity Reaction Status Date / Time No Known Allergies Allergy Verified 07/01/21 08:48 ED Review of Systems ROS: Stated complaint: HEAVY PAINFUL CYCLE SINCE MAY Other details as noted in HPI Comment: All other systems reviewed and negative ED Past Medical Hx - Past Medical History Previous Medical History?: Yes Hx Hypertension: No Hx Heart Attack/AMI: No Hx Congestive Heart Failure: No Hx Diabetes: Yes (gestational only) Hx Deep Vein Thrombosis: No Hx Liver Disease: No Hx Renal Disease: No Hx Sickle Cell Disease: No Hx Seizures: No Hx Asthma: No Hx COPD: No Hx HIV: No Additional medical history: Anemia. bronchitis - Surgical History Hx Pacemaker: No Hx Internal Defibrillator: No Additional Surgical History: c/s x 1. tubal ligation. T&A. wisdom teeth - Social History Smoking Status: Never Smoker Substance Use Type: None - Medications Home Medications: Home Medications Medication Instructions Recorded Confirmed Last Taken Type Ferrous Sulfate [Feosol 325 MG tab] 325 mg PO BID #60 tablet 11/12/16 Unknown Rx Guaifenesin/Pseudoephedrne HCl 1 tab PO BID PRN #24 tab 06/29/17 Unknown Rx [Mucinex D ER 1,200-120 mg Tab] Ibuprofen 800 mg PO TID PRN #30 tablet 06/29/17 Unknown Rx Ondansetron [Zofran Odt] 4 mg PO TID PRN #12 tab.rapdis 06/29/17 Unknown Rx Acetaminophen/Codeine [Tylenol 1 tab PO Q6H PRN #12 tab 01/31/18 Unknown Rx /Codeine # 3 tab] Ibuprofen [Motrin] 600 mg PO Q8H PRN #30 tab 01/31/18 Unknown Rx Ibuprofen [Motrin 800 MG tab] 800 mg PO Q8HR PRN #12 tablet 02/20/18 Unknown Rx methOCARBAMOL [Robaxin TAB] 500 mg PO BID #10 tab 02/20/18 Unknown Rx metroNIDAZOLE [Flagyl] 500 mg PO BID 7 Days #14 tab 04/10/19 Unknown Rx Amoxicillin/Potassium Clav 1 each PO Q12H #20 tablet 11/14/19 Unknown Rx [Augmentin 875-125 Tablet] Benzonatate [Tessalon Perles] 100 mg PO Q8HR #30 capsule 11/14/19 Unknown Rx Butalb/Acetamin/Caff 50-325-40 1 - 2 tab PO Q6HR PRN #15 tab 11/14/19 Unknown Rx [Fioricet 50-325-40] Ibuprofen [Motrin] 800 mg PO Q8HR PRN #30 tablet 11/14/19 Unknown Rx methylPREDNISolone [Medrol 4MG 4 mg PO DAILY #21 tab.ds.pk 11/14/19 Unknown Rx DOSEPAK (21 tabs)] Albuterol Mdi (or & Nicu Only) 1 puff IH Q4-6H PRN #1 inha 03/16/20 Unknown Rx [ProAir HFA Inhaler] Benzonatate [Tessalon Perles] 100 mg PO Q8HR #20 capsule 03/16/20 Unknown Rx predniSONE [Deltasone] 20 mg PO QDAY #5 tab 03/16/20 Unknown Rx Fluconazole (Nf) [Diflucan TAB] 150 mg PO ONCE #1 tablet 04/28/20 Unknown Rx metroNIDAZOLE [Flagyl] 500 mg PO BID 7 Days #14 tab 04/28/20 Unknown Rx Iron Fum,Ps/Folic/Bcomp,C No.9 1 each PO BID 30 Days #60 capsule 07/01/21 Unknown Rx [Integra Plus Capsule] medroxyPROGESTERone ACETATE 10 mg PO QDAY #10 1000units 07/01/21 Unknown Rx [Provera] ED Physical Exam - General Limitations: No Limitations General appearance: alert, in no apparent distress, obese - Head Head exam: Present: atraumatic, normocephalic - Eye Eye exam: Present: normal appearance - ENT ENT exam: Present: mucous membranes moist - Neck Neck exam: Present: normal inspection - Respiratory Respiratory exam: Present: normal lung sounds bilaterally. Absent: respiratory distress - Cardiovascular Cardiovascular Exam: Present: regular rate, normal rhythm. Absent: systolic murmur, diastolic murmur, rubs, gallop - GI/Abdominal GI/Abdominal exam: Present: soft, normal bowel sounds - Extremities Exam Extremities exam: Present: normal inspection - Back Exam Back exam: Present: normal inspection - Neurological Exam Neurological exam: Present: alert, oriented X3 - Psychiatric Psychiatric exam: Present: normal affect, normal mood - Skin Skin exam: Present: warm, dry, intact, normal color. Absent: rash ED Course Vital Signs 07/01/21 08:45 Temperature 98.4 F Pulse Rate 90 Respiratory 20 Rate Blood Pressure 150/84 O2 Sat by Pulse 99 Oximetry ED Medical Decision Making - Lab Data Result diagrams: 07/01/21 09:24 07/01/21 09:24 - Medical Decision Making 30-year-old severely morbid obese -[place] female presents to the emergency room for heavy menstrual cycle since May. Patient states that she has gone through 5-6 overnight pads a day. She does not have her PROJECT GEOLOGIST. She is has a history of a tubal ligation. She complains of lower abdominal pain 6 out of 10. She is taking nothing for pain. Admits to dizziness weakness denies any shortness of breath chest pain. She is 3 para to 3. CBC, urinalysis, type and screen, CMP. Critical care attestation.: If time is entered above; I have spent that time in minutes in the direct care of this critically ill patient, excluding procedure time. ED Disposition Clinical Impression: Morbid obesity with BMI of 50.0-59.9, adult, Menorrhagia, Iron deficiency anemia due to chronic blood loss Disposition: 01 HOME / SELF CARE / HOMELESS Is pt being admited?: No Does the pt Need Aspirin: No Condition: Stable Instructions: Menorrhagia, Dysfunctional Uterine Bleeding Additional Instructions: It is important that you take your medications as prescribed. It is more important you follow-up with an PROJECT GEOLOGIST I have listed several below for your convenience. Prescriptions: Iron Fum,Ps/Folic/Bcomp,C No.9 [Integra Plus Capsule] 1 each PO BID 30 Days #60 capsule medroxyPROGESTERone ACETATE [Provera] 10 mg PO QDAY #10 1000units Referrals: PRIMARY CARE [Primary Care Provider] - 3-5 Days [facility] [Provider Group] - 3-5 Days [facility] [Provider Group] - 3-5 Days [facility] [Provider Group] - 3-5 Days Time of Disposition: 10:43
[2021-07-01 09:45] LABS: Basophils % (Auto) 0.3 % (0.0-1.8); Eosinophils # (Auto) 0.1 K/mm3 (0.0-0.4); Lymphocytes # (Auto) 1.9 K/mm3 (1.2-5.4); Lymphocytes % (Auto) 25.9 % (13.4-35.0); Mean Corpuscular HGB Conc 29 % (30-34); Monocytes # (Auto) 0.5 K/mm3 (0.0-0.8); Monocytes % (Auto) 6.1 % (0.0-7.3); Platelet Count 339 K/mm3 (140-440); Red Blood Count 4.13 M/mm3 (3.65-5.03)
[2021-07-01 09:49] LABS: Hematocrit 24.5 % (30.3-42.9); Mean Corpuscular Volume 59 fl (79-97); Red Cell Distribution Width 20.7 % (13.2-15.2)
[2021-07-01 10:06] LABS: Alanine Aminotransferase 11 units/L (7-56); Albumin 3.9 g/dL (3.9-5); BUN/Creatinine Ratio 10; Blood Urea Nitrogen 8 mg/dL (7-17); Calcium 8.8 mg/dL (8.4-10.2); Hemolysis Index 0
== END 2021-07-01 11:04 | disposition home or self-care (01) ==
LOC: ED 08:34
DX: N92.4 Excessive bleeding in the premenopausal period (principal); D64.9 Anemia, unspecified; E66.8 Other obesity; Z68.43 Body mass index [BMI] 50.0-59.9, adult; Z98.51 Tubal ligation status; Z79.899 Other long term (current) drug therapy
CPT/HCPCS: 36415; 80053; 84702; 85025; 86850; 86900; 86901; 99283

== ENCOUNTER 2021-09-27 20:18 | Emergency (ER) | payer OTHER ==
[2021-09-28] MEDS ORDERED: IBUPROFEN 600 MG TAB PO ONE (02:44)
[2021-09-28] MEDS ORDERED: ACETAMINOPHEN 500 MG TAB PO ONE (02:44)
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
[2021-09-28 04:50] VITALS: BP 147/76
== END 2021-09-28 04:50 | disposition home or self-care (01) ==
LOC: ED 20:18
DX: S76.012A Strain of muscle, fascia and tendon of left hip, initial encounter (principal); M62.830 Muscle spasm of back; Z79.899 Other long term (current) drug therapy; V89.2XXA Person injured in unspecified motor-vehicle accident, traffic, initial encounter; Y93.89 Activity, other specified; Y92.488 Other paved roadways as the place of occurrence of the external cause; Y99.8 Other external cause status
CPT/HCPCS: 72100; 72170; 99283